=== PATIENT | female | born 1990 | race Caucasian/White ===

== ENCOUNTER 2020-04-22 16:04 | Emergency (ER) | payer OTHER ==
[2020-04-22] MEDS ORDERED: Sodium Chloride 0.9% 1000 ML 1,000 ML IV SCH (16:45)
[2020-04-22 17:03] LABS: Absolute Neutrophil Ct (ANC) 3.23 (1.4-6.9); BASOPHIL % 0.5 % (0.0-0.4); Basophil (Absolute #) 0.03 (0-0.4); Eosinophil % 2.3 % (0.00-5.0); Eosinophil (Absolute #) 0.14 (0-0.5); Hematocrit 42.3 % (35-47); Lymphocytes % 36.1 % (24.0-44.0); Mean Cell Volume 90.8 fl (78-100); Mean Corpuscular Hgb Concent. 33.1 g/dl (32-36); Mean Platelet Volume 10.3 fl (7.5-11.0); Monocyte (Absolute #) 0.49 (0.0-1.3); Neutrophil % 53.1 % (36.0-66.0); Platelet Count 265 K/mm3 (150-450); Red Blood Count 4.66 M/mm3 (4.1-5.4); Red Cell Distribution Width 12.9 % (11.5-14.0); White Blood Count 6.1 K/mm3 (4.0-10.5)
[2020-04-22 17:10] LABS: Appearance CLEAR (CLEAR); Bilirubin NEGATIVE (NEGATIVE); Blood MODERATE Ery/ul (0-5); Epithelial Cells RARE /HPF (FEW); Glucose NEGATIVE (NEGATIVE); Ketones NEGATIVE (NEGATIVE); Leukocyte Esterase NEGATIVE (NEGATIVE); Nitrite NEGATIVE (NEGATIVE); Protein,Urine Dip NEGATIVE (Negative); Specific Gravity 1.006 (1.005-1.025); Urobilinogen NEGATIVE mg/dL (0-1)
[2020-04-22 18:01] LABS: ABO TYPING A; Antibody Screen NEGATIVE (NEGATIVE); RH TYPING POSITIVE
--- NOTE | 2020-04-22 18:08 | ERPHSYRPT ---
- History of Present Illness Time Seen by Provider: 04/22/20 16:15 Source: patient Exam Limitations: no limitations Patient Subjective Stated Complaint: vag bleeding and Triage Nursing Assessment: pt to ED c/o vag bleeding/cramping x 1 month. reports that her IUD displaced a month ago and was removed. pt took plan B pill and was started on oral contraceptive at that time. bleeding/cramping never ended after IUD removal. pt states she felt dizzy and breasts were tender today so she took a test. it was +, pt took 3 more tests and all 4 tests showed +. Dr. Conway told pt to come to ED for r/o ectopic . pain 1/10 cramping in lower bilat abd. Physician History: Patient is a 29-year-old female G6, P3 M 2who presents to our ED as a referral from her [facility] physician for evaluation of possible ectopic. Patient states she has been experiencing vaginal bleeding and pelvic cramping. Patient states 1 month ago her IUD displaced. Patient was concerned with and took a Plan B pill. Patient was started on oral contraceptive pills. For the past several days patient has been feeling dizzy. She states her breasts are tender. Patient had 4+ test at home. In light of these symptoms patient was sent to our ED to rule out ectopic. No trauma. No fevers. No nausea no vomiting. No diarrhea. Symptoms are mild to moderate in intensity. No specific worsening improving factors. Patient is otherwise healthy. She voices no other complaints at this time. Timing/Duration: day(s) Severity: moderate Modifying Factors: Improves With: nothing Associated Symptoms: No denies symptoms, No nausea, No vomiting, No abdominal pain, No shortness of breath, No diaphoresis, No chest pain, No fever, No headaches, No loss of appetite, No malaise, No syncope, No weakness Allergies/Adverse Reactions: No Known Drug Allergies Allergy (Unverified 04/22/20 16:45) Hx Tetanus, Diphtheria Vaccination/Date Given: Yes Hx Influenza Vaccination/Date Given: Yes Hx Pneumococcal Vaccination/Date Given: No Immunizations Up to Date: Yes Travel Risk - International Travel Have you traveled outside of the country in past 3 weeks: No - Coronavirus Screening Are you exhibiting any of the following symptoms?: No Close contact with a COVID-19 positive Pt in past 14-21 Days: No - Review of Systems Constitutional: No Symptoms, No Fever, No Chills Eyes: No Symptoms Ears, Nose, & Throat: No Symptoms Respiratory: No Symptoms, No Cough, No Dyspnea Cardiac: No Symptoms, No Chest Pain, No Edema, No Syncope Abdominal/Gastrointestinal: No Symptoms, No Abdominal Pain, No Nausea, No Vomiting, No Diarrhea Genitourinary Symptoms: No Symptoms, No Dysuria Musculoskeletal: No Symptoms, No Back Pain, No Neck Pain Skin: No Symptoms, No Rash Neurological: No Symptoms, No Dizziness, No Focal Weakness, No Sensory Changes Psychological: No Symptoms Endocrine: No Symptoms Hematologic/Lymphatic: No Symptoms Immunological/Allergic: No Symptoms All Other Systems: Reviewed and Negative - Past Medical History Pertinent Past Medical History: Yes Respiratory History: Asthma - Past Surgical History Past Surgical History: Yes Gastrointestinal: Appendectomy, Cholecystectomy Female Surgical History: Dilation & Curettage - Social History Smoking Status: Never smoker Exposure to second hand smoke: No Drug Use: none Patient Lives Alone: No - Female History Hx Now: Yes (4 + tests at home) - Nursing Vital Signs Nursing Vital Signs: Initial Vital Signs Temperature 98.6 F 04/22/20 16:09 Pulse Rate 92 H 04/22/20 16:09 Respiratory Rate 17 04/22/20 16:09 Blood Pressure 143/99 04/22/20 16:09 O2 Sat by Pulse Oximetry 98 04/22/20 16:09 Pain Scale Pain Intensity 1 - Physical Exam General Appearance: no apparent distress, alert Eye Exam: PERRL/EOMI, eyes nml inspection Ears, Nose, Throat Exam: normal ENT inspection, TMs normal, pharynx normal, moist mucous membranes Neck Exam: normal inspection, non-tender, supple, full range of motion Respiratory Exam: normal breath sounds, lungs clear, No respiratory distress Cardiovascular Exam: regular rate/rhythm, normal heart sounds, normal peripheral pulses Gastrointestinal/Abdomen Exam: soft, normal bowel sounds, No tenderness, No mass Back Exam: normal inspection, normal range of motion, No CVA tenderness, No vertebral tenderness Extremity Exam: normal inspection, normal range of motion, pelvis stable Neurologic Exam: alert, oriented x 3, cooperative, normal mood/affect, nml cerebellar function, nml station & gait, sensation nml, No motor deficits Skin Exam: normal color, warm, dry, No rash Lymphatic Exam: No adenopathy SpO2 Interpretation: normal SpO2: 97 O2 Delivery: Room Air - Course Nursing assessment & vital signs reviewed: Yes - Radiology Ultrasound Exam OB Ultrasound: tele radiology report (No intrauterine gestational sac pole or heart tones. Indeterminate 1.7 x 1.2 x 1.7 cm echogenic solid mass adjacent to right ovary without color flow. Cannot rule out ectopic. Remaining uterus and both ovaries unremarkable.) Ordered Tests: Active Orders 24 hr Category Date Time Status IV Insertion STAT Care 04/22/20 16:40 Active OB <14 WKS 1ST GESTATION [US] Stat Exams 04/22/20 16:41 Taken CBC W DIFF Stat Lab 04/22/20 16:55 Completed CMP Stat Lab 04/22/20 18:27 Ordered HCG, Quantitative (Inhouse) Stat Lab 04/22/20 16:55 Completed UA W/RFX UR CULTURE Stat Lab 04/22/20 16:44 Completed Wet Prep Stat Lab 04/22/20 16:41 Ordered Transfer Order Routine Transfer 04/22/20 Ordered Medication Summary Generic Name Dose Route Start Last Admin Trade Name Freq PRN Reason Stop Dose Admin Sodium Chloride 1,000 mls @ 100 mls/hr 04/22/20 16:45 04/22/20 17:01 Sodium Chloride 0.9% 1000 Ml IV 05/22/20 16:44 Not Given .Q10H [facility] Lab/Rad Data: Laboratory Result Diagrams 04/22/20 16:55 04/22/20 16:55 Laboratory Results 04/22/20 04/22/20 04/22/20 Range/Units 16:55 16:55 16:55 WBC (4.0-10.5) K/mm3 RBC (4.1-5.4) M/mm3 Hgb (12.0-16.0) gm/dl Hct (35-47) % MCV (78-100) fl MCH (26-32) pg MCHC (32-36) g/dl RDW (11.5-14.0) % Plt Count (150-450) K/mm3 MPV (7.5-11.0) fl Gran % (36.0-66.0) % Eos # (Auto) (0-0.5) Absolute Lymphs (auto) (1.0-4.6) Absolute Monos (auto) (0.0-1.3) Lymphocytes % (24.0-44.0) % Monocytes % (0.0-12.0) % Eosinophils % (0.00-5.0) % Basophils % (0.0-0.4) % Absolute Granulocytes (1.4-6.9) Basophils # (0-0.4) Sodium 137 (137-145) mmol/L Potassium 4.2 (3.5-5.1) mmol/L Chloride 104 (98-107) mmol/L Carbon Dioxide 25 (22-30) mmol/L Anion Gap 12.3 (5-15) MEQ/L BUN 11 (7-17) mg/dL Creatinine 0.67 (0.52-1.04) mg/dL Estimated GFR > 60.0 ML/MIN Glucose 85 (74-106) mg/dL Calcium 10.1 (8.4-10.2) mg/dL Total Bilirubin 0.90 (0.2-1.3) mg/dL AST 21 (14-36) U/L ALT 14 (0-35) U/L Alkaline Phosphatase 44 (38-126) U/L Serum Total Protein 6.9 (6.3-8.2) g/dL Albumin 4.5 (3.5-5.0) g/dL Beta HCG, Quant 116.53 mIU/ml Urine Color (YELLOW) Urine Appearance (CLEAR) Urine pH (5-6) Ur Specific [place] (1.005-1.025) Urine Protein (Negative) Urine Ketones (NEGATIVE) Urine Blood (0-5) Dave/ul Urine Nitrite (NEGATIVE) Urine Bilirubin (NEGATIVE) Urine Urobilinogen (0-1) mg/dL Ur Leukocyte Esterase (NEGATIVE) Urine WBC (Auto) (0-5) /HPF Urine RBC (Auto) (0-2) /HPF U Epithel Cells (Auto) (FEW) /HPF Urine Bacteria (Auto) (NEGATIVE) /HPF Urine Culture Reflexed (NO) Urine Glucose (NEGATIVE) mg/dL ABO Group A Rh Factor POSITIVE Antibody Screen NEGATIVE (NEGATIVE) 04/22/20 04/22/20 Range/Units 16:55 16:44 WBC 6.1 (4.0-10.5) K/mm3 RBC 4.66 (4.1-5.4) M/mm3 Hgb 14.0 (12.0-16.0) gm/dl Hct 42.3 (35-47) % MCV 90.8 (78-100) fl MCH 30.0 (26-32) pg MCHC 33.1 (32-36) g/dl RDW 12.9 (11.5-14.0) % Plt Count 265 (150-450) K/mm3 MPV 10.3 (7.5-11.0) fl Gran % 53.1 (36.0-66.0) % Eos # (Auto) 0.14 (0-0.5) Absolute Lymphs (auto) 2.20 (1.0-4.6) Absolute Monos (auto) 0.49 (0.0-1.3) Lymphocytes % 36.1 (24.0-44.0) % Monocytes % 8.0 (0.0-12.0) % Eosinophils % 2.3 (0.00-5.0) % Basophils % 0.5 (0.0-0.4) % Absolute Granulocytes 3.23 (1.4-6.9) Basophils # 0.03 (0-0.4) Sodium (137-145) mmol/L Potassium (3.5-5.1) mmol/L Chloride (98-107) mmol/L Carbon Dioxide (22-30) mmol/L Anion Gap (5-15) MEQ/L BUN (7-17) mg/dL Creatinine (0.52-1.04) mg/dL Estimated GFR ML/MIN Glucose (74-106) mg/dL Calcium (8.4-10.2) mg/dL Total Bilirubin (0.2-1.3) mg/dL AST (14-36) U/L ALT (0-35) U/L Alkaline Phosphatase (38-126) U/L Serum Total Protein (6.3-8.2) g/dL Albumin (3.5-5.0) g/dL Beta HCG, Quant mIU/ml Urine Color STRAW (YELLOW) Urine Appearance CLEAR (CLEAR) Urine pH 7.0 (5-6) Ur Specific [place] 1.006 (1.005-1.025) Urine Protein NEGATIVE (Negative) Urine Ketones NEGATIVE (NEGATIVE) Urine Blood MODERATE (0-5) Dave/ul Urine Nitrite NEGATIVE (NEGATIVE) Urine Bilirubin NEGATIVE (NEGATIVE) Urine Urobilinogen NEGATIVE (0-1) mg/dL Ur Leukocyte Esterase NEGATIVE (NEGATIVE) Urine WBC (Auto) NONE (0-5) /HPF Urine RBC (Auto) NONE (0-2) /HPF U Epithel Cells (Auto) RARE (FEW) /HPF Urine Bacteria (Auto) NONE (NEGATIVE) /HPF Urine Culture Reflexed NO (NO) Urine Glucose NEGATIVE (NEGATIVE) mg/dL ABO Group Rh Factor Antibody Screen (NEGATIVE) - Progress Progress: improved Progress Note: 04/22/20 18:23 Patient reassessed. Patient declined pain medication. Patient initially declined IV fluids. However ultrasound reveals a right adnexal mass with a positive beta quant. Beta quant is 116. Case discussed with Dr. Conway who requested to call in the surgical team for an emergent surgery. Especially her she is respiratory patient's last meal was approximately 6 hours ago. Will maintain n.p.o. status. IV fluids will be infused. Plan of care discussed with patient. She voices no other complaints concerns at this time. Discussed with Dr.: Travon (Per Dr. Yoo patient will be taken to the OR emergently for suspected ectopic.) Will see patient in: hospital (observation) Counseled pt/family regarding: lab results, diagnosis, rad results - Departure Departure Disposition: Observation Clinical Impression: Ectopic , Vaginal bleeding Condition: Stable Critical Care Time: Yes Critical Care Time(excluding separately billable procedures): Critical 75-104 mins Referrals: FELISA HUGGINS MD [Primary Care Provider] -
[2020-04-22 18:36] LABS: CHLAMYDIA DNA NOT DETECTED (NEGATIVE); GC DNA Probe NOT DETECTED (NEGATIVE)
[2020-04-22 18:43] LABS: ALBUMIN 4.5 g/dL (3.5-5.0); ALKALINE PHOSPHATASE 44 U/L (38-126); ANION GAP 12.3 MEQ/L (5-15); BLOOD UREA NITROGEN 11 mg/dL (7-17); CHLORIDE 104 mmol/L (98-107); Calcium 10.1 mg/dL (8.4-10.2); Carbon Dioxide 25 mmol/L (22-30); Creatinine 1 0.67 mg/dL (0.52-1.04); Glucose 85 mg/dL (74-106); Potassium 4.2 mmol/L (3.5-5.1); SGOT/AST 21 U/L (14-36); SGPT/ALT 14 U/L (0-35); SODIUM 137 mmol/L (137-145); Total Protein 6.9 g/dL (6.3-8.2)
[2020-04-22] MEDS ORDERED: Lactated Ringers 1,000 ML IV ONE ×2 (19:02→20:47)
[2020-04-22] MEDS ORDERED: Pepcid 20 MG VIAL IV ONE ×2 (19:03→19:04)
[2020-04-22 19:07] VITALS: O2SAT 99
[2020-04-22] MEDS ORDERED: DIPRIVAN 200 MG/20 ML IV ONE (19:09)
[2020-04-22] MEDS ORDERED: Zemuron 100 MG/10 ML ONE (19:09)
[2020-04-22] MEDS ORDERED: BRIDION 200MG/2ML IV ONE (19:09)
[2020-04-22] MEDS ORDERED: Decadron 4 MG INJ ONE (19:09)
[2020-04-22] MEDS ORDERED: Quelicin Fliptop 200 MG/10 ML ONE (19:09)
[2020-04-22] MEDS ORDERED: Zofran 4 MG/2 ML VIAL ONE ×2 (19:09→20:42)
[2020-04-22] MEDS ORDERED: TORAdol 30 mg Injection ONE (19:09)
[2020-04-22] MEDS ORDERED: Xylocaine-Mpf 2% 5 Ml Vial ONE (19:09)
[2020-04-22 19:10] VITALS: BP 122/76; PULSE 78
[2020-04-22] MEDS ORDERED: Versed 2 MG/2 ML Injection ONE (19:10)
[2020-04-22] MEDS ORDERED: SUBLIMAZE 100 MCG/2 ML ONE ×2 (19:10→20:14)
[2020-04-22] MEDS ORDERED: Lactated Ringers 1,000 ML IV SCH (19:30)
[2020-04-22] MEDS ORDERED: PHENYLEPHRINE HCL ONE (19:57)
[2020-04-22] MEDS ORDERED: DILAUDID 2 MG INJECTION ONE (20:36)
[2020-04-22] MEDS ORDERED: DEMEROL 50 MG ONE (20:47)
[2020-04-22 22:38] LABS: Appearance CLEAR (CLEAR); Bilirubin NEGATIVE (NEGATIVE); Blood NEGATIVE Ery/ul (0-5); Glucose NEGATIVE (NEGATIVE); Ketones TRACE (NEGATIVE); Leukocyte Esterase NEGATIVE (NEGATIVE); Nitrite NEGATIVE (NEGATIVE); Protein,Urine Dip NEGATIVE (Negative); Specific Gravity 1.008 (1.005-1.025); Urobilinogen NEGATIVE mg/dL (0-1); WBC 0-2 /HPF (0-5)
--- NOTE | 2020-04-23 08:37 | OP ---
SURGERY DATE/TIME: 04/22/20201914 PREOPERATIVE DIAGNOSIS: Right-sided ectopic with vaginal bleeding. 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 PROCEDURES: 1) Dilation and curettage. 2) Diagnostic laparoscopy with linear salpingostomy. 2) Removal of right ampullary ectopic . SURGEON: John Conway D.O. CRUDE OIL DRIVER: Denise Garcia, registered nurse surgical services. ANESTHESIA: General. ESTIMATED BLOOD LOSS: Minimal. COMPLICATIONS: None. INDICATIONS: The risks, benefits, indications and alternatives of the procedure were reviewed with the patient prior to procedure. The patient understood the risk of infection, bleeding, bowel injury, bladder injury, ureteral injury, uterine perforation, possible future ectopic that could be associated with this and desires to have this procedure as a possible need to alleviate her current medical condition. DESCRIPTION OF PROCEDURE AND FINDINGS: At this point the patient is taken to the operating room, given general sedation, placed in dorsal lithotomy position, prepped and draped in the usual sterile fashion. A weighted speculum is then placed in the patient's vagina and the anterior lip of the cervix is grasped with a single tooth tenaculum. Endocervical dilators were advanced through the endocervical canal as a means to dilate the cervix and at this point a curette was then placed into the fundus of the uterus and curettage performed in all quadrants of the uterus retrieving a mild amount of endometrial tissue. From this point hemostasis was obtained. From this point uterine manipulator was then placed into the endocervical canal as a means to manipulate the uterus. All instruments were then removed from the patient's vaginal region. Attention was then turned to the abdomen where a 5 mm skin incision was made approximately 1 cm above the umbilicus where a 5 mm trocar and sleeve were advanced under direct visualization where pneumoperitoneum was obtained with 4 liters of CO2 gas. From this point an additional incision was made on the left middle quadrant region where a 5 mm incision is made and a 5 mm trocar and sleeve were advanced under direct visualization as well and a third incision was made 2 cm above the symphysis pubis where a 5 mm trocar and sleeve were advanced under direct visualization. From this point survey of the patient's pelvis and abdomen revealed her to have approximately 100 cc of pneumoperitoneum with normal appearing left adnexa. However, her right adnexa on the ampullary region appeared to have approximately a 2 x 1 cm ampullary mass which is consistent with the ultrasound finding of an ectopic . From this point, a J-hook bipolar instrument was used and a linear incision was made along the ampullary region of the tube and approximately 2 cm linear incision was made and graspers were used on either side where irrigation was placed into the tube. From this point, the ectopic was then extruded and was removed via the laparoscopic grasper and was removed in its entirety without complication. There was minimal bleeding that was noted and the bipolar medical staff physician was then used to coagulate two small regions of bleeding sites on the mucosal region where hemostasis was obtained. No other abnormalities were noted along the fallopian tube. Again, hemostasis was obtained. The remainder of the tube appeared to be within normal limits as well as the ovary. There were no adhesions located within the pelvic region. Bilateral fimbria appeared to be within normal limits and a survey of the patient's abdominal region appeared to be within normal limits as well. From this point, irrigation was taken place. Again, there was no bleeding that was noted in the pelvic region. From this point all of the instruments were removed from the patient's abdominal region and the incisions were closed with 4-0 Monocryl suture with subsequent Dermabond. The patient was then taken out of dorsal lithotomy position, was taken out of anesthesia and was then taken to the recovery room in stable condition. All instruments and laps were accounted for x2.
--- NOTE | 2020-04-23 08:48 | XRAY ---
Indication: Ectopic . Two-dimensional transvaginal pelvic sonogram performed. Comparison: None Uterus anteverted measuring 8.3 x 5.5 x 3.5 cm. Myometrium homogeneous. No intrauterine gestational sac, pole, or heart tones. Endometrial stripe measures 5.3 mm. No endometrial cavity mass or fluid collection. Right ovary measures 2.1 x 2.7 x 1.9 cm and the left measures 2.1 x 1.5 x 1.7 cm with normal follicular cysts and color perfusion bilaterally. There is a 1.7 x 1.2 x 1.7 cm echogenic solid mass immediately adjacent to the right ovary without gestational sac, pole/heart tones, or abnormal color flow. No free fluid. Impression: 1. Negative intrauterine . 2. Indeterminant echogenic mass adjacent to the right ovary as detailed. Ectopic is not completely excluded in the right clinical setting. Additional partial differential includes tubo-ovarian abscess, endometrioma, and benign/malignant tumors. Comment: Preliminary report was given to the ordering clinician following exam.
== END 2020-04-22 21:50 | disposition home or self-care (01) ==
LOC: ED 16:04
DX: O00.90 Unspecified ectopic pregnancy without intrauterine pregnancy (principal); N93.9 Abnormal uterine and vaginal bleeding, unspecified; K66.1 Hemoperitoneum
CPT/HCPCS: 36415; 58120; 59150; 59151; 76801; 80053; 81001; 84702; 85025; 86850; 86900; 86901; 87086; 87491; 87591; 88304; 88305; 96374; 99140; 99284; 99291; 99292; J0330; J1100; J1170; J1885; J2175; J2250; J2370; J2405; J2704; J3010

== ENCOUNTER 2020-04-25 17:10 | Emergency (ER) | payer OTHER ==
[2020-04-25] MEDS ORDERED: Sodium Chloride 0.9% 1000 ML 1,000 ML IV STA (17:12)
[2020-04-25] MEDS ORDERED: Sodium Chloride 0.9% 1000 ML 1,000 ML ONE (17:34)
[2020-04-25 17:44] VITALS: BP 132/73; O2SAT 99
[2020-04-25 17:45] LABS: Absolute Neutrophil Ct (ANC) 5.22 (1.4-6.9); BASOPHIL % 0.3 % (0.0-0.4); Basophil (Absolute #) 0.03 (0-0.4); Eosinophil % 6.4 % (0.00-5.0); Eosinophil (Absolute #) 0.56 (0-0.5); Hematocrit 37.8 % (35-47); Hemoglobin 12.5 gm/dl (12.0-16.0); Lymphocyte (Absolute #) 2.36 (1.0-4.6); Lymphocytes % 26.9 % (24.0-44.0); Mean Cell Volume 91.1 fl (78-100); Mean Corpuscular Hemoglobin 30.1 pg (26-32); Mean Corpuscular Hgb Concent. 33.1 g/dl (32-36); Mean Platelet Volume 10.3 fl (7.5-11.0); Monocytes % 6.8 % (0.0-12.0); Neutrophil % 59.6 % (36.0-66.0); Platelet Count 256 K/mm3 (150-450); Red Blood Count 4.15 M/mm3 (4.1-5.4); Red Cell Distribution Width 12.6 % (11.5-14.0); White Blood Count 8.8 K/mm3 (4.0-10.5)
[2020-04-25 18:12] LABS: ALBUMIN 4.3 g/dL (3.5-5.0); ALKALINE PHOSPHATASE 45 U/L (38-126); AMYLASE 81 U/L (30-110); ANION GAP 12.5 MEQ/L (5-15); BLOOD UREA NITROGEN 12 mg/dL (7-17); CHLORIDE 105 mmol/L (98-107); Calcium 9.1 mg/dL (8.4-10.2); Carbon Dioxide 25 mmol/L (22-30); Creatinine 1 0.63 mg/dL (0.52-1.04); Glucose 113 mg/dL (74-106); HCG, Quantitative (Inhouse) 72.56 mIU/ml; LIPASE 76 U/L (23-300); SGOT/AST 21 U/L (14-36); SGPT/ALT 13 U/L (0-35); SODIUM 138 mmol/L (137-145); Total Protein 7.2 g/dL (6.3-8.2)
--- NOTE | 2020-04-25 18:24 | ERPHSYRPT ---
- History of Present Illness Time Seen by Provider: 04/25/20 18:20 Historian: patient Exam Limitations: no limitations Patient Subjective Stated Complaint: Abdominal pain Triage Nursing Assessment: Patient ambulated back to ED and transferred self to bed. Patient A+O X3. Patient's skin pink, warm and dry. Patient complains of right lower pelvic pain constant, sharp pain 7/10 with intermittent abdominal cramping. Patient had ectopic of and went to emergency surgery. Patient called Dr. Conway and was told to come to ED. Patient states she is having bloody discharge with clots and sometimes will bleed a lot. Patient's abdomen soft and distended. Patient states she feels bloated. Physician History: Patient complains of right lower pelvic pain constant, sharp pain 7/10 with intermittent abdominal cramping. Patient had ectopic of and went to emergency surgery. Patient called Dr. Conway and was told to come to ED. Patient states she is having bloody discharge with clots and sometimes will bleed a lot. Patient's abdomen soft and distended. Patient states she feels bloated. Timing/Duration: today Activities at Onset: none Quality: cramping Abdominal Pain Onset Location: suprapubic Pain Radiation: no radiation Severity of Pain-Max: mild Severity of Pain-Current: mild Modifying Factors: Improves With: nothing Associated Symptoms: No fever/chills, No loss of appetite, No nausea, No shortness of breath, No vomiting Previous symptoms: no prior history Allergies/Adverse Reactions: No Known Drug Allergies Allergy (Verified 04/25/20 17:36) Home Medications: No Reportable Medications [No Reported Medications] 04/25/20 [History] Hx Tetanus, Diphtheria Vaccination/Date Given: Yes Hx Influenza Vaccination/Date Given: Yes Hx Pneumococcal Vaccination/Date Given: No Immunizations Up to Date: Yes Travel Risk - International Travel Have you traveled outside of the country in past 3 weeks: No - Coronavirus Screening Are you exhibiting any of the following symptoms?: No Close contact with a COVID-19 positive Pt in past 14-21 Days: No - Review of Systems Constitutional: No Fever, No Chills Eyes: No Symptoms Ears, Nose, & Throat: No Symptoms Respiratory: No Cough, No Dyspnea Cardiac: No Chest Pain, No Edema, No Syncope Abdominal/Gastrointestinal: Abdominal Pain, No Nausea, No Vomiting, No Diarrhea Genitourinary Symptoms: Vaginal Bleeding, No Dysuria Musculoskeletal: No Back Pain, No Neck Pain Skin: No Rash Neurological: No Dizziness, No Focal Weakness, No Sensory Changes Psychological: No Symptoms Endocrine: No Symptoms All Other Systems: Reviewed and Negative - Past Medical History Pertinent Past Medical History: Yes Neurological History: No Pertinent History ENT History: No Pertinent History Cardiac History: No Pertinent History Respiratory History: Asthma Endocrine Medical History: No Pertinent History Musculoskeletal History: No Pertinent History GI Medical History: No Pertinent History History: No Pertinent History Psycho-Social History: Depression Female Reproductive Disorders: No Pertinent History - Past Surgical History Past Surgical History: Yes Neuro Surgical History: No Pertinent History Cardiac: No Pertinent History Respiratory: No Pertinent History Gastrointestinal: Appendectomy, Cholecystectomy Genitourinary: No Pertinent History Musculoskeletal: No Pertinent History Female Surgical History: Dilation & Curettage - Social History Smoking Status: Never smoker Exposure to second hand smoke: No Drug Use: none Patient Lives Alone: No - Female History Hx Last Menstrual Period: unknown Hx Now: No - Nursing Vital Signs Nursing Vital Signs: Initial Vital Signs Temperature 98.3 F 04/25/20 17:36 Pulse Rate 104 H 04/25/20 17:36 Respiratory Rate 18 04/25/20 17:36 Blood Pressure 132/73 04/25/20 17:36 O2 Sat by Pulse Oximetry 99 04/25/20 17:36 Pain Scale Pain Intensity 7 - Physical Exam General Appearance: no apparent distress, alert Eye Exam: PERRL/EOMI, eyes nml inspection Ears, Nose, Throat Exam: normal ENT inspection, pharynx normal, moist mucous membranes Neck Exam: normal inspection, non-tender, supple, full range of motion Respiratory Exam: normal breath sounds, lungs clear, No respiratory distress Cardiovascular Exam: regular rate/rhythm, normal heart sounds Gastrointestinal/Abdomen Exam: soft, tenderness, No mass Back Exam: normal inspection, normal range of motion, No CVA tenderness, No vertebral tenderness Extremity Exam: normal inspection, normal range of motion, pelvis stable Neurologic Exam: alert, oriented x 3, cooperative, normal mood/affect, nml cerebellar function, sensation nml, No motor deficits Skin Exam: normal color, warm, dry SpO2: 99 - Course Nursing assessment & vital signs reviewed: Yes - Radiology Ultrasound Exam Pelvis Ultrasound: discussed w/radiologist (? some tissues remain at surgical site according to [place] missile tracking technician.) Ordered Tests: Active Orders 24 hr Category Date Time Status IV Insertion STAT Care 04/25/20 18:48 Active PELVIC [US] Stat Exams 04/25/20 17:12 Taken AMYLASE Stat Lab 04/25/20 17:42 Completed CBC W DIFF Stat Lab 04/25/20 17:42 Completed CMP Stat Lab 04/25/20 17:42 Completed HCG, Quantitative (Inhouse) Stat Lab 04/25/20 17:42 Completed LIPASE Stat Lab 04/25/20 17:42 Completed Medication Summary Discontinued Medications Generic Name Dose Route Start Last Admin Trade Name Freq PRN Reason Stop Dose Admin Sodium Chloride 1,000 mls @ 999 mls/hr 04/25/20 17:12 04/25/20 18:45 Sodium Chloride 0.9% 1000 Ml IV 04/25/20 18:12 Infused .Q1H1M STA Infusion Sodium Chloride Confirm 04/25/20 17:34 Sodium Chloride 0.9% 1000 Ml Administered 04/25/20 17:35 Dose 1,000 mls @ ud .ROUTE .STK-MED ONE Methotrexate Sodium 50 mg 04/25/20 18:50 Methotrexate 50 Mg/2 Ml Vial IM 04/25/20 18:51 STAT ONE Lab/Rad Data: Laboratory Result Diagrams 04/25/20 17:42 04/25/20 17:42 Laboratory Results 04/25/20 04/25/20 Range/Units 17:42 17:42 WBC 8.8 (4.0-10.5) K/mm3 RBC 4.15 (4.1-5.4) M/mm3 Hgb 12.5 (12.0-16.0) gm/dl Hct 37.8 (35-47) % MCV 91.1 (78-100) fl MCH 30.1 (26-32) pg MCHC 33.1 (32-36) g/dl RDW 12.6 (11.5-14.0) % Plt Count 256 (150-450) K/mm3 MPV 10.3 (7.5-11.0) fl Gran % 59.6 (36.0-66.0) % Eos # (Auto) 0.56 H (0-0.5) Absolute Lymphs (auto) 2.36 (1.0-4.6) Absolute Monos (auto) 0.60 (0.0-1.3) Lymphocytes % 26.9 (24.0-44.0) % Monocytes % 6.8 (0.0-12.0) % Eosinophils % 6.4 H (0.00-5.0) % Basophils % 0.3 (0.0-0.4) % Absolute Granulocytes 5.22 (1.4-6.9) Basophils # 0.03 (0-0.4) Sodium 138 (137-145) mmol/L Potassium 4.0 (3.5-5.1) mmol/L Chloride 105 (98-107) mmol/L Carbon Dioxide 25 (22-30) mmol/L Anion Gap 12.5 (5-15) MEQ/L BUN 12 (7-17) mg/dL Creatinine 0.63 (0.52-1.04) mg/dL Estimated GFR > 60.0 ML/MIN Glucose 113 H (74-106) mg/dL Calcium 9.1 (8.4-10.2) mg/dL Total Bilirubin 0.60 (0.2-1.3) mg/dL AST 21 (14-36) U/L ALT 13 (0-35) U/L Alkaline Phosphatase 45 (38-126) U/L Serum Total Protein 7.2 (6.3-8.2) g/dL Albumin 4.3 (3.5-5.0) g/dL Amylase 81 (30-110) U/L Lipase 76 (23-300) U/L Beta HCG, Quant 72.56 mIU/ml - Progress Progress: improved, pain not gone completely Progress Note: 04/25/20 19:04 Dr Conway advised methotraxate 50 mg IM deep gluteal area Discussed with : Other (Dr Conway) Counseled pt/family regarding: lab results, diagnosis, need for follow-up, rad results - Departure Departure Disposition: Home Clinical Impression: Vaginal bleeding Condition: Stable Critical Care Time: No Referrals: FELISA HUGGINS MD [Primary Care Provider] - Additional Instructions: follow up with Dr Conway in 2 days. If symptoms get worse call Dr Conway or come to ER.
[2020-04-25] MEDS ORDERED: METHOTREXATE 50 MG/2 ML VIAL IM ONE (18:50)
[2020-04-25] MEDS ORDERED: TORAdol 30 mg Injection IV ONE (19:06)
[2020-04-25] MEDS ORDERED: TORAdol 30 mg Injection ONE (19:14)
[2020-04-25 20:28] VITALS: PULSE 98
--- NOTE | 2020-04-26 08:51 | XRAY ---
Indication: Ectopic . Right pelvic pain. Two-dimensional transvaginal pelvic sonogram performed. Comparison: April 22, 2020. Uterus again anteverted measuring 8.4 x 4.3 x 5.2 cm. Myometrium remains homogeneous. Endometrial cavity demonstrates new tiny fluid near the fundus measuring 0.9 x 2.3 x 0.3 cm. No endometrial cavity mass. Right ovary measures 2.8 x 1.5 x 1.8 cm and the left measures 2.2 x 1.7 x 1.2 cm with normal follicular cysts and color perfusion.. Previous echogenic mass adjacent to the right ovary reidentified measuring 2.2 x 1.8 x 2.3 cm with increasing color Doppler flow. This previously measured 1.7 x 1.2 x 1.7 cm. New tiny cul-de-sac free fluid. Impression: 1. Minimally enlarging indeterminant echogenic mass adjacent to the right ovary as detailed. Differential unchanged. 2. New tiny endometrial cavity fluid and tiny cul-de-sac fluid. 3. Remaining transvaginal pelvic sonogram is negative. Comment: Preliminary report was given.
== END 2020-04-25 20:27 | disposition home or self-care (01) ==
LOC: ED 17:10
DX: N93.9 Abnormal uterine and vaginal bleeding, unspecified (principal)
CPT/HCPCS: 36000; 36415; 76856; 80053; 82150; 83690; 84702; 85025; 96360; 96372; 96374; 99284; J1885; J9260

== ENCOUNTER 2021-06-13 11:46 | Emergency (ER) | payer OTHER ==
[2021-06-13 11:55] VITALS: BP 120/79; PULSE 73; O2SAT 100
--- NOTE | 2021-06-13 12:12 | ERPHSYRPT ---
- History of Present Illness Source: patient Exam Limitations: no limitations Patient Subjective Stated Complaint: pt here for pain to upper right jaw , she has a tooth with the cavity is out and has apt 07/20 have pulled pt is 10 weeks now , Triage Nursing Assessment: pt laert, walked in, resp easy, skin w/d/p. has swelling to gums, Physician History: 30 yo wf w dental pain x 2 days. Pt had a filling fall out 2 wks ago and has s een her dentist who referred her to an oral surgeon who is going to extract her R superior 2nd molar and R inferior 1st premolar. Pt has had increasing pain and gingival edema. No trismus. Pt is 10wks . Timing/Duration: this afternoon, days (2 days) ENT Location: dental Prearrival Treatment: over the counter meds (Tylenol) Modifying Factors: Worsens With: activity, nothing, albuterol inhaler, albuterol nebulizer, coughing, deep breath, exertion, lying down, oxygen, rest Associated Symptoms: denies symptoms, jaw pain, tooth pain, No ear pain (R), No ear pain (L), No cough, No fever, No chills, No change in hearing, No dizziness, No drooling, No ear drainage, No facial pain/swelling, No headache, No hearing loss, No malaise, No motion sickness, No nasal congestion/drainage, No epistaxis, No nasal foreign body, No neck pain, No poor fluid intake, No poor solids intake, No ringing of ears, No swollen glands, No sinus infection, No sore throat, No difficulty swallowing, No voice change Allergies/Adverse Reactions: No Known Drug Allergies Allergy (Verified 06/13/21 11:55) Home Medications: Bupropion HCl [Wellbutrin Sr] 1 ea DAILY 06/13/21 [History] Ondansetron ODT 4 MG [Zofran Odt 4 mg] 1 ea DAILY 06/13/21 [History] Vits W-Ca,Fe,FA(<1Mg) [] 1 ea DAILY 06/13/21 [History] Hx Tetanus, Diphtheria Vaccination/Date Given: Yes Hx Influenza Vaccination/Date Given: Yes Hx Pneumococcal Vaccination/Date Given: No Immunizations Up to Date: Yes Travel Risk - International Travel Have you traveled outside of the country in past 3 weeks: No - Coronavirus Screening Are you exhibiting any of the following symptoms?: No Close contact with a COVID-19 positive Pt in past 14-21 Days: No - Vaccine Status Have you recieved a Covid-19 vaccination: Yes [place]: Pfizer - Vaccination Dates Date of 2cond Vaccination (if applicable): ? - Review of Systems Constitutional: No Symptoms Eyes: No Symptoms Ears, Nose, & Throat: No Symptoms, Mouth Pain Respiratory: No Symptoms Cardiac: No Symptoms Abdominal/Gastrointestinal: No Symptoms Genitourinary Symptoms: No Symptoms Musculoskeletal: No Symptoms Skin: No Symptoms Neurological: No Symptoms Psychological: No Symptoms Endocrine: No Symptoms Hematologic/Lymphatic: No Symptoms Immunological/Allergic: No Symptoms - Past Medical History Pertinent Past Medical History: Yes Neurological History: No Pertinent History ENT History: No Pertinent History Cardiac History: No Pertinent History Respiratory History: Asthma Endocrine Medical History: No Pertinent History Musculoskeletal History: No Pertinent History GI Medical History: No Pertinent History History: No Pertinent History Psycho-Social History: Depression Female Reproductive Disorders: No Pertinent History - Past Surgical History Past Surgical History: Yes Neuro Surgical History: No Pertinent History Cardiac: No Pertinent History Respiratory: No Pertinent History Gastrointestinal: Appendectomy, Cholecystectomy Genitourinary: No Pertinent History Musculoskeletal: No Pertinent History Female Surgical History: Dilation & Curettage - Social History Smoking Status: Never smoker Exposure to second hand smoke: No Drug Use: none Patient Lives Alone: No Significant Family History: no pertinent family hx - Female History Hx Last Menstrual Period: april 04 Hx Now: Yes Expected Date of Delivery: 01/09/22 - Nursing Vital Signs Nursing Vital Signs: Initial Vital Signs Temperature 97.2 F 06/13/21 11:51 Pulse Rate 73 06/13/21 11:51 Respiratory Rate 18 06/13/21 11:51 Blood Pressure 120/79 06/13/21 11:51 O2 Sat by Pulse Oximetry 100 06/13/21 11:51 Pain Scale Pain Intensity 8 WNL - Physical Exam General Appearance: no apparent distress Eye Exam: bilateral eye: normal inspection, PERRL, EOMI Ear Exam: bilateral ear: auricle normal, canal normal, TM normal Nasal Exam: normal inspection Throat Exam: pharynx normal, dental tenderness (R superior 2nd molar w advanced erosion w surrounding edema/R inferior premolar eroded to base), No excessive drooling, No foreign body, No mandibular swelling, No maxillary swelling, No moist mucus membranes, No pharynx swelling, No pharynx tenderness, No tongue swollen, No tonsillar exudate, No tonsillar swelling, No trismus, No uvula swelling, No voice changes Neck Exam: normal inspection, non-tender, supple, full range of motion, trachea midline, No JVD Cardiovascular/Respiratory Exam: normal breath sounds, regular rate/rhythm, heart sounds normal Abdominal Exam: non-tender Neurologic Exam: alert, oriented x 3, cooperative, 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 Pt to follow up with dentist/oral surgeon// Zoraida in AM. 06/13/21 16:58 Discussed with : Travon (and dentist/oral surgeon) Counseled pt/family regarding: diagnosis, need for follow-up - Departure Departure Disposition: Home Clinical Impression: Pain due to dental caries Condition: Stable Critical Care Time: No Referrals: FELISA HUGGINS MD [Primary Care Provider] - Instructions: Tooth Abscess (DC), Tooth Decay, Adult (DC), Dental Pain (DC) Additional Instructions: Follow up with dentist/oral surgeon sandy Prescriptions: Penicillin V Potassium 500 mg PO TID 7 Days #21 tablet
== END 2021-06-13 12:18 | disposition home or self-care (01) ==
LOC: ED 11:46
DX: K02.9 Dental caries, unspecified (principal); K08.89 Other specified disorders of teeth and supporting structures
CPT/HCPCS: 99283

== ENCOUNTER 2022-01-01 08:50 | Inpatient (IN) | payer OTHER ==
[2022-01-01] MEDS: CYTOTEC PO SCH ×2 (20:31→22:28)
[2022-01-01 20:44] LABS: Basophil (Absolute #) 0.02 (0-0.4); Eosinophil % 0.9 % (0.00-5.0); Eosinophil (Absolute #) 0.09 (0-0.5); Hematocrit 27.5 % (35-47); Hemoglobin 8.4 gm/dl (12.0-16.0); Lymphocytes % 20.9 % (24.0-44.0); Mean Cell Volume 80.2 fl (78-100); Mean Corpuscular Hemoglobin 24.5 pg (26-32); Mean Corpuscular Hgb Concent. 30.5 g/dl (32-36); Mean Platelet Volume 10.5 fl (7.5-11.0); Monocyte (Absolute #) 0.68 (0.0-1.3); Monocytes % 7.1 % (0.0-12.0); Neutrophil % 70.9 % (36.0-66.0); Platelet Count 233 K/mm3 (150-450); Red Blood Count 3.43 M/mm3 (4.1-5.4); Red Cell Distribution Width 16.2 % (11.5-14.0); White Blood Count 9.6 K/mm3 (4.0-10.5)
[2022-01-01 21:00] LABS: Appearance CLEAR (CLEAR); Bilirubin NEGATIVE (NEGATIVE); Glucose NEGATIVE (NEGATIVE); Ketones NEGATIVE (NEGATIVE); RBC NEGATIVE Ery/ul (0-5); Specific Gravity 1.015 (1.005-1.025)
[2022-01-01 21:01] LABS: Dipstick done @ ? MAIN LAB; Nitrite NEGATIVE (NEGATIVE); Ph 6.5 (5-6); Protein,Urine Dip NEGATIVE (Negative); Urobilinogen 0.2 mg/dL (0-1)
[2022-01-01 21:03] LABS: Epithelial Cells RARE /HPF (FEW)
[2022-01-01 21:10] LABS: Amphetamine,Urine NEGATIVE (NEGATIVE); Barbiturate,Urine NEGATIVE (NEGATIVE); Benzodiazepine,Urine NEGATIVE (NEGATIVE); Cocaine,Urine NEGATIVE (NEGATIVE); Methadone,Urine NEGATIVE (NEGATIVE); Opiate,Urine NEGATIVE (NEGATIVE); PCP,Urine NEGATIVE (NEGATIVE); THC,Urine NEGATIVE (NEGATIVE)
[2022-01-01 21:20] LABS: Urine Cultured Indicated? NO
[2022-01-01] MEDS ORDERED: STADOL 2 MG IV PRN (22:47)
[2022-01-02] MEDS ORDERED: Lactated Ringers 1,000 ML IV ONE ×2 (00:07→06:00)
[2022-01-02] MEDS: Lactated Ringers 1,000 ML IV SCH ×2 (00:13→08:24)
[2022-01-02] MEDS: CYTOTEC PO SCH ×4 (00:19→06:31)
[2022-01-02] MEDS: Zofran 4 MG/2 ML VIAL IV PRN ×2 (00:32→08:24)
[2022-01-02] MEDS ORDERED: Ephedrine Sulfate 50 MG/ML IV PRN (07:00)
[2022-01-02] MEDS ORDERED: BRETHINE 1 MG/ML SQ PRN (07:00)
[2022-01-02] MEDS ORDERED: FENTANYL 2 MCG-BUPIV 0.125%-NS 250 ML Epidur 250 ML EPIDURAL SCH (07:00)
[2022-01-02] MEDS ORDERED: PITOCIN 30 UNITS/ LR 500 ML 30 UNITS/500 ML PLAST..BAG IV SCH ×2 (07:00→08:00)
[2022-01-02] MEDS ORDERED: Dulcolax 10 MG SUPP PR PRN (08:00)
[2022-01-02] MEDS ORDERED: CORTISONE 1% CREAM TP PRN (08:00)
[2022-01-02] MEDS ORDERED: TUCKS TP PRN (08:00)
[2022-01-02] MEDS ORDERED: Dermoplast Spray TP PRN (08:00)
[2022-01-02] MEDS ORDERED: XYLOCAINE 1% HCL 20 ML MDV IJ PRN (08:00)
[2022-01-02] MEDS ORDERED: Anucort-HC SUPPOSITORY PR PRN (08:00)
[2022-01-02] MEDS ORDERED: LANSINOH 40 GM TOP PRN (08:00)
[2022-01-02] MEDS ORDERED: Zofran 4 MG/2 ML VIAL ONE ×2 (08:50→09:56)
[2022-01-02] MEDS ORDERED: Decadron 4 MG INJ ONE ×2 (08:50→09:25)
[2022-01-02] MEDS ORDERED: TORAdol 30 mg Injection ONE (08:50)
[2022-01-02] MEDS ORDERED: SUBLIMAZE 100 MCG/2 ML ONE ×2 (08:50→10:04)
[2022-01-02] MEDS ORDERED: Xylocaine-Mpf 2% 5 Ml Vial ONE (08:50)
[2022-01-02] MEDS ORDERED: DIPRIVAN 200 MG/20 ML IV ONE (08:50)
[2022-01-02] MEDS ORDERED: Sodium Chloride 0.9% 100 ML BAG 100 ML ONE (09:11)
[2022-01-02] MEDS ORDERED: TRANEXAMIC ACID 1000 MG/10 ML 1,000 MG in Sodium Chloride 0.9% 100 ML BAG 100 ML IV ONE (09:15)
[2022-01-02] MEDS ORDERED: Zemuron 100 MG/10 ML ONE (09:20)
[2022-01-02] MEDS ORDERED: Pitocin 10 UNITS/ML ONE (09:20)
[2022-01-02] MEDS ORDERED: Marcaine 0.5%/Epinephrine 10 ML ONE (09:20)
[2022-01-02] MEDS ORDERED: PHENYLEPHRINE HCL ONE (09:20)
[2022-01-02] MEDS ORDERED: BRIDION 200MG/2ML IV ONE (09:25)
[2022-01-02 09:40] LABS: VBG CARBOXYHEMOGLOBIN 1.7 % T HGB (0.0-6.9); VBG HCO3- 22.3 meq/L (22-28); VBG HEMOGLOBIN 13.2; VBG O2 SATURATION 91.9 (95-100); VBG POTASSIUM 4.2 (3.5-5.1); VBG pH 7.4 (7.32-7.42)
[2022-01-02] MEDS ORDERED: Hydromorphone 1 mg/ml Injection ONE (10:04)
--- NOTE | 2022-01-02 10:20 | XRAY ---
Indication: Aspiration. Post section. Comparison: None Portable apical lordotic chest demonstrates normal heart, lungs, and bony thorax.
[2022-01-02] MEDS ORDERED: Sodium Chloride 0.9% 1000 ML 1,000 ML ONE (11:07)
[2022-01-02] MEDS: CEFAZOLIN 2 GM-D5W BAG** 2 GM/50 ML ML IV SCH ×2 (11:54→20:06)
[2022-01-02] MEDS: MOTRIN 400 MG PO PRN ×2 (12:38→22:10)
[2022-01-02] MEDS: Dextrose 5%-Lr IV Solution 1000 ML 1,000 ML IV SCH ×2 (13:15→20:11)
[2022-01-02] MEDS ORDERED: NORCO 5/325 MG PO PRN (13:37)
[2022-01-02 15:15] LABS: Appearance CLEAR (CLEAR); Bilirubin NEGATIVE (NEGATIVE); Dipstick done @ ? MAIN LAB; Glucose NEGATIVE (NEGATIVE); Ketones TRACE (NEGATIVE); Nitrite NEGATIVE (NEGATIVE); Protein,Urine Dip NEGATIVE (Negative); RBC MODERATE Ery/ul (0-5); Specific Gravity 1.015 (1.005-1.025); Urobilinogen 0.2 mg/dL (0-1)
[2022-01-02 15:26] LABS: Bacteria RARE /HPF (NEGATIVE); Epithelial Cells RARE /HPF (FEW); Mucus SLIGHT /HPF (NEGATIVE)
[2022-01-02 19:06] LABS: Hematocrit 25.3 % (35-47); Hemoglobin 8.2 gm/dl (12.0-16.0); Mean Cell Volume 83.2 fl (78-100); Mean Corpuscular Hgb Concent. 32.4 g/dl (32-36); Mean Platelet Volume 10.4 fl (7.5-11.0); Platelet Count 214 K/mm3 (150-450); Red Blood Count 3.04 M/mm3 (4.1-5.4); Red Cell Distribution Width 16.5 % (11.5-14.0); White Blood Count 16.1 K/mm3 (4.0-10.5)
[2022-01-02] MEDS: Docusate Sodium 100 MG PO SCH (22:09)
[2022-01-02] MEDS: TYLENOL EXTRA STRENGTH 500 MG PO PRN (22:10)
[2022-01-02] MEDS ORDERED: Ambien 10 MG PO PRN (23:52)
[2022-01-03] MEDS ORDERED: Ambien 10 MG PO PRN (00:07)
[2022-01-03] MEDS: TYLENOL EXTRA STRENGTH 500 MG PO PRN ×3 (03:01→22:00)
[2022-01-03] MEDS: CEFAZOLIN 2 GM-D5W BAG** 2 GM/50 ML ML IV SCH (03:19)
[2022-01-03] MEDS: Mylicon 80MG PO PRN ×3 (03:39→19:54)
[2022-01-03 05:39] VITALS: O2SAT 100
[2022-01-03 05:40] LABS: Absolute Neutrophil Ct (ANC) 11.03 (1.4-6.9); Basophil (Absolute #) 0 (0-0.4); Eosinophil % 0.2 % (0.00-5.0); Eosinophil (Absolute #) 0.03 (0-0.5); Hematocrit 22.2 % (35-47); Hemoglobin 7.1 gm/dl (12.0-16.0); Lymphocyte (Absolute #) 2.04 (1.0-4.6); Lymphocytes % 14.4 % (24.0-44.0); Mean Cell Volume 83.8 fl (78-100); Mean Corpuscular Hemoglobin 26.8 pg (26-32); Mean Platelet Volume 10.5 fl (7.5-11.0); Monocyte (Absolute #) 1.07 (0.0-1.3); Monocytes % 7.6 % (0.0-12.0); Neutrophil % 77.8 % (36.0-66.0); Platelet Count 207 K/mm3 (150-450); Red Blood Count 2.65 M/mm3 (4.1-5.4); Red Cell Distribution Width 16.6 % (11.5-14.0); White Blood Count 14.2 K/mm3 (4.0-10.5)
[2022-01-03] MEDS: MOTRIN 400 MG PO PRN ×3 (05:58→19:54)
--- NOTE | 2022-01-03 08:29 | OP ---
SURGERY DATE/TIME: 01/02/2022 0855 PREOPERATIVE DIAGNOSIS: Intrauterine at 39 weeks gestation with cord prolapse. POSTOPERATIVE DIAGNOSIS: Intrauterine at 39 weeks gestation with cord prolapse. PROCEDURE: Primary section, low flap transverse uterine incision, Pfannenstiel skin incision. SURGEON: John Conway D.O. SEC ACCOUNTANT: Tushar Tee, surgical manager. ANESTHESIA: General. ESTIMATED BLOOD LOSS: 650 cc. COMPLICATIONS: None. INDICATIONS: The risks, benefits, indications and alternatives of the procedure were reviewed with the patient prior to procedure. The patient understood the risk of infection, bleeding, bowel injury, bladder injury, ureteral injury, uterine perforation, pelvic infection and thromboembolic disorder associated with the surgery however desires to have this surgery as a possible means to alleviate her current medical condition. DESCRIPTION OF PROCEDURE AND FINDINGS: At this point the patient is taken under emergency situation from her laboring room to the operating room where she was placed under general anesthesia which was found to be adequate. She was then prepared and draped in normal sterile fashion in the dorsal supine position with a leftward tilt. A Pfannenstiel skin incision is made with a scalpel and carried down through to the underlying layer of the fascia with a knife. The fascia was then incised in the midline and the incision extended laterally with the knife. The incision was extended through the fascia, through the muscle where the bladder was then visualized. From this point under STAT situation, the incision of the uterus was then incised and extended laterally where a bladder flap was now developed. From this point, the bladder blade was then removed and the infants head was delivered atraumatically and was noted to have a cord around the shoulder region. The nose and mouth were suctioned with bulb suction. The cord clamped and cut. The infant was then handed off to awaiting nurses at this point. Cord gas was sent. The placenta was then removed manually. The uterus exteriorized and cleared of all clots and debris. The uterine incision was repaired with 1-0 chromic in a running locked fashion. A second layer of the same suture was used to obtain excellent hemostasis. There was continued bleeding that was noted and tranexamic acid (TXA) 1 gm was given as well as Methergine 0.2 mg. From this point, the uterine incision was repaired with 1-0 chromic in running locked fashion and the second layer of the same suture was used to obtain excellent hemostasis. The uterus is then returned to the abdomen. The gutters were cleared of clots and the peritoneal muscles were closed with 2-0 chromic suture. The fascia was re-approximated with 0 Vicryl in running fashion. The subcutaneous layer was closed with 3-0 Vicryl suture and the skin was closed with absorbable cecille called INSORB. The patient tolerated the procedure well. Sponge, lap, needle and instrument counts were correct x2. The patient was then taken out of anesthesia and taken to the recovery room in stable condition. The patient delivered a live baby boy at 0901 hours, weight of the baby was 8 pounds 15 ounces and 's were 3, 1 and 9.
[2022-01-03] MEDS ORDERED: FERREX 150 PO SCH (10:00)
[2022-01-03] MEDS ORDERED: ENOXAPARIN SODIUM SQ ONE (10:00)
[2022-01-03] MEDS: Docusate Sodium 100 MG PO SCH ×2 (10:23→22:01)
[2022-01-03] MEDS: FEOSOL 325 MG PO SCH ×3 (10:24→22:01)
--- NOTE | 2022-01-03 11:07 | PCM.NOTE ---
Date and Time: 01/03/22 1103 Subjective Assessment: pod 1 sp csection pt resting in bed and doing well ambulating and tolerating diet vss afebrile abd; soft incision c/d/intact uterus; firm lochia; mild hgb ; 7.1 ap sp csection pod 1 with postop anemia will add iron supplementation to tid encourage ambulation anticipate discharge tomorrow OBJECTIVE DATA Vital Signs: Vital Signs - 24 hr Temp Pulse Resp BP Pulse Ox 01/03/22 09:00 100 01/03/22 08:00 97.6 F 96 H 20 106/55 100 01/03/22 06:56 100 01/03/22 06:00 100 01/03/22 05:00 100 01/03/22 04:00 97.8 F 120 H 20 123/72 99 01/03/22 03:00 98 01/03/22 02:00 78 20 98 01/03/22 00:54 98 01/03/22 00:00 98.9 F 81 20 104/61 81 L 01/02/22 23:00 98 01/02/22 22:00 99 01/02/22 21:00 98 01/02/22 20:00 100 F 97 H 16 109/64 98 01/02/22 19:00 99 01/02/22 18:00 99 01/02/22 17:00 97.5 F 78 20 109/60 99 01/02/22 16:00 100 01/02/22 15:00 99 01/02/22 14:00 97.2 F 90 20 106/63 100 01/02/22 13:00 97.1 F 78 20 108/66 99 01/02/22 12:20 100 01/02/22 12:00 97.4 F 95 H 20 99/60 100 01/02/22 11:45 97.4 F 93 H 20 101/55 100 01/02/22 11:30 97.4 F 93 H 20 101/55 100 01/02/22 11:15 97.7 F 92 H 20 106/62 100 Pain Assessment - Last Documented Pain Intensity [Lower] 2 Pain Intensity 7 Pain Scale Used 0-10 Pain Scale Intake and Output: Intake & Output 12/31/21 01/01/22 01/02/22 01/03/22 11:59 11:59 11:59 11:59 Intake Total 1100 9206 Output Total 5850 Balance 1100 3356 Weight 87.09 kg Lab Results: Lab Results-Last 24 Hours 01/02/22 01/02/22 01/03/22 Range/Units 09:35 18:32 04:40 WBC 16.1 H 14.2 H (4.0-10.5) K/mm3 RBC 3.04 L 2.65 L (4.1-5.4) M/mm3 Hgb 8.2 L 7.1 L (12.0-16.0) gm/dl Hct 25.3 L 22.2 L (35-47) % MCV 83.2 83.8 (78-100) fl MCH 27.0 26.8 (26-32) pg MCHC 32.4 32.0 (32-36) g/dl RDW 16.5 H 16.6 H (11.5-14.0) % Plt Count 214 207 (150-450) K/mm3 MPV 10.4 10.5 (7.5-11.0) fl Gran % 77.8 H (36.0-66.0) % Eos # (Auto) 0.03 (0-0.5) Absolute Lymphs (auto) 2.04 (1.0-4.6) Absolute Monos (auto) 1.07 (0.0-1.3) Lymphocytes % 14.4 L (24.0-44.0) % Monocytes % 7.6 (0.0-12.0) % Eosinophils % 0.2 (0.00-5.0) % Basophils % 0.0 (0.0-0.4) % Absolute Granulocytes 11.03 H (1.4-6.9) Basophils # 0 (0-0.4) Urinalys Dipstick Clnc MAIN LAB Urine Color YELLOW (YELLOW) Urine Appearance CLEAR (CLEAR) Urine pH 7.0 (5-6) Ur Specific [place]ossom 1.015 (1.005-1.025) POC Urine Protein Conf NEGATIVE (Negative) Urine Ketones TRACE (NEGATIVE) Urine Nitrite NEGATIVE (NEGATIVE) Urine Bilirubin NEGATIVE (NEGATIVE) Urine Urobilinogen 0.2 (0-1) mg/dL Urine Leukocytes NEGATIVE (NEGATIVE) Urine WBC (Auto) 3-5 (0-5) /HPF Urine RBC (Auto) 16-25 (0-2) /HPF U Epithel Cells (Auto) RARE (FEW) /HPF Urine Bacteria (Auto) RARE (NEGATIVE) /HPF Urine RBC MODERATE (0-5) Dave/ul Urine Mucus (Auto) SLIGHT (NEGATIVE) /HPF Urine Glucose NEGATIVE (NEGATIVE) mg/dL Radiology Exams: Radiology Procedures Category Date Time Status CHEST 1 VIEW (PORTABLE) Stat Exams 01/02/22 09:49 Completed Assessment/Plan (1) Prolapse of umbilical cord Current Visit: Yes Status: Acute Code(s): O69.0XX0 - LABOR AND DELIVERY COMPLICATED BY PROLAPSE OF CORD, UNSP (2) Status post primary low transverse section Current Visit: Yes Status: Acute Code(s): Z98.891 - HISTORY OF UTERINE SCAR FROM PREVIOUS SURGERY (3) Postoperative anemia Current Visit: Yes Status: Acute Code(s): D64.9 - ANEMIA, UNSPECIFIED
[2022-01-03] MEDS: NORCO 5/325 MG PO PRN ×3 (13:07→23:57)
[2022-01-03] MEDS ORDERED: Adacel Vial IM ONE (16:31)
[2022-01-03 18:12] LABS: Hematocrit 24.1 % (35-47); Hemoglobin 7.5 gm/dl (12.0-16.0); Mean Cell Volume 84.9 fl (78-100); Mean Corpuscular Hemoglobin 26.4 pg (26-32); Mean Corpuscular Hgb Concent. 31.1 g/dl (32-36); Mean Platelet Volume 10.1 fl (7.5-11.0); Platelet Count 251 K/mm3 (150-450); Red Blood Count 2.84 M/mm3 (4.1-5.4); Red Cell Distribution Width 17.1 % (11.5-14.0); White Blood Count 14.2 K/mm3 (4.0-10.5)
[2022-01-03 19:14] LABS: HBsAg Screen Negative (Negative)
[2022-01-04] MEDS: MOTRIN 400 MG PO PRN ×2 (03:59→11:54)
[2022-01-04] MEDS: Zofran 4 MG/2 ML VIAL IV PRN (04:23)
[2022-01-04] MEDS: NORCO 5/325 MG PO PRN ×2 (04:59→09:07)
--- NOTE | 2022-01-04 08:05 | PCM.NOTE ---
Date and Time: 01/04/22 0803 Subjective Assessment: pod 2 pt resting in bed and doing well feeling some anxiety. ambulating and tolerating diet vss afebrile abd; soft incision c/d/intact uterus; firm lochia; mild a/p sp csection pod 2 anemia dc home advised iron supplementatin tid for 30 days advised zoloft should fu office 2 wks OBJECTIVE DATA Vital Signs: Vital Signs - 24 hr Temp Pulse Resp BP Pulse Ox 01/04/22 00:00 98.2 F 90 22 120/71 100 01/03/22 19:00 99.3 F 108 H 18 120/73 100 01/03/22 13:54 110 H 18 121/74 01/03/22 09:00 100 Pain Assessment - Last Documented Pain Intensity [Lower] 0 Pain Intensity 5 Pain Scale Used 0-10 Pain Scale Intake and Output: Intake & Output 01/01/22 01/02/22 01/03/22 01/04/22 11:59 11:59 11:59 11:59 Intake Total 1100 9206 1700 Output Total 5850 Balance 1100 3356 1700 Weight 87.09 kg Lab Results: Lab Results-Last 24 Hours 01/01/22 01/03/22 Range/Units 20:41 18:00 WBC 14.2 H (4.0-10.5) K/mm3 RBC 2.84 L (4.1-5.4) M/mm3 Hgb 7.5 L (12.0-16.0) gm/dl Hct 24.1 L (35-47) % MCV 84.9 (78-100) fl MCH 26.4 (26-32) pg MCHC 31.1 L (32-36) g/dl RDW 17.1 H (11.5-14.0) % Plt Count 251 (150-450) K/mm3 MPV 10.1 (7.5-11.0) fl Hep Bs Antigen Negative (Negative) Radiology Exams: Radiology Procedures Category Date Time Status CHEST 1 VIEW (PORTABLE) Stat Exams 01/02/22 09:49 Completed Assessment/Plan (1) Prolapse of umbilical cord Current Visit: Yes Status: Acute Code(s): O69.0XX0 - LABOR AND DELIVERY COMPLICATED BY PROLAPSE OF CORD, UNSP (2) Status post primary low transverse section Current Visit: Yes Status: Acute Code(s): Z98.891 - HISTORY OF UTERINE SCAR FROM PREVIOUS SURGERY (3) Postoperative anemia Current Visit: Yes Status: Acute Code(s): D64.9 - ANEMIA, UNSPECIFIED
--- NOTE | 2022-01-04 08:14 | PCM.DS ---
Discharge Summary Date of Admission: 01/02/22 08:50 Admitting Physician: AMBROSE AGUILAR DO Consults: Consults on Case 01/02/22 07:00 Notify Anesthesia Provider PRN Primary Care Provider: FELISA HUGGINS Allergies Allergies No Known Drug Allergies Allergy (Verified 01/01/22 00:32) Hospital Summary - Hospital Course Hospital Course: pt admitted on january 01 for oral cytotec for induction and had arom on january 02 in the am however was noted having a cord prolapse and was subsequently taken to the OR for emergency csection and delivered live baby boy without complication on january 02. during operative procedure pt was noted having significant blood loss and was transfused 2 units prbc and was given txa 1 gm and methergine. during postop period did well and had stable hgb level at 7.5 before discharge and at this time stable for discharge. pt did exhibit anxiety and was sent home on zoloft and pt requested zofran. pt will be going home on norco for pain management. incision c/d/intact. - Vitals & Intake/Output Vital Signs: Vital Signs Temperature 98.2 F 01/04/22 00:00 Pulse Rate 90 01/04/22 00:00 Respiratory Rate 22 01/04/22 00:00 Blood Pressure 120/71 01/04/22 00:00 O2 Sat by Pulse Oximetry 100 01/04/22 00:00 Intake & Output: Intake & Output 01/01/22 01/02/22 01/03/22 01/04/22 11:59 11:59 11:59 11:59 Intake Total 1100 9206 1700 Output Total 5850 Balance 1100 3356 1700 Weight 87.09 kg - Lab Result Diagrams: 01/03/22 18:00 Lab Results-Last 24 Hrs: Lab Results-Last 24 Hours 01/01/22 01/03/22 Range/Units 20:41 18:00 WBC 14.2 H (4.0-10.5) K/mm3 RBC 2.84 L (4.1-5.4) M/mm3 Hgb 7.5 L (12.0-16.0) gm/dl Hct 24.1 L (35-47) % MCV 84.9 (78-100) fl MCH 26.4 (26-32) pg MCHC 31.1 L (32-36) g/dl RDW 17.1 H (11.5-14.0) % Plt Count 251 (150-450) K/mm3 MPV 10.1 (7.5-11.0) fl Hep Bs Antigen Negative (Negative) Micro Results-Entire Visit: Microbiology 01/02/22 09:35 Urine Culture - Preliminary Catherized NO GROWTH TO DATE - Radiology Exams Ordered Rad Exams-Entire Visit: Radiology Procedures Category Date Time Status CHEST 1 VIEW (PORTABLE) Stat Exams 01/02/22 09:49 Completed - Procedures and Test Procedures and Tests throughout Hospitalization: Therapy Orders & Screens 01/02/22 10:41 Standby STAT Comment: Diagnosis: IUP, IOL Final Diagnosis/Problem List - Final Discharge Diagnosis/Problem (1) Prolapse of umbilical cord Current Visit: Yes Status: Acute Code(s): O69.0XX0 - LABOR AND DELIVERY COMPLICATED BY PROLAPSE OF CORD, UNSP (2) Status post primary low transverse section Current Visit: Yes Status: Acute Code(s): Z98.891 - HISTORY OF UTERINE SCAR FROM PREVIOUS SURGERY (3) Postoperative anemia Current Visit: Yes Status: Acute Code(s): D64.9 - ANEMIA, UNSPECIFIED - Discharge Disposition: Home, Self-Care Condition: Stable Prescriptions: New Hydrocodone/Acetaminophen [Hydrocodone-Acetamin 5-325 mg] 1 tab PO Q6HPRN PRN #26 tablet MDD 4 PRN Reason: Pain Ondansetron ODT 4 MG [Zofran Odt 4 mg] 4 mg PO Q6HPRN PRN #30 applic PRN Reason: Nausea Sertraline HCl 50 mg [Zoloft 50 mg Tablet] 50 mg PO DAILY 30 Days #30 tab No Action Vits W-Ca,Fe,FA(<1Mg) [] 1 ea PO DAILY Ondansetron ODT 4 MG [Zofran Odt 4 mg] 1 ea PO DAILY buPROPion HCL [Wellbutrin Sr] 1 ea DAILY Albuterol Common Canister [Ventolin Common Canister] 2 puff IH Q4-6HPRN PRN PRN Reason: Allergies Ferrous Sulfate 325 mg PO DAILY Cetirizine HCl [Zyrtec] 10 mg PO DAILY Follow up with: FELISA HUGGINS MD [Primary Care Provider] - AMBROSE AGUILAR DO [ACTIVE STAFF] - 2 weeks
[2022-01-04] MEDS ORDERED: PITOCIN 30 UNITS/ LR 500 ML 500 ML IV ONE (08:44)
[2022-01-04] MEDS ORDERED: Lactated Ringers 1,000 ML IV ONE (08:44)
[2022-01-04] MEDS: Docusate Sodium 100 MG PO SCH (09:07)
[2022-01-04] MEDS: FEOSOL 325 MG PO SCH (09:07)
[2022-01-04 11:21] VITALS: BP 111/66; PULSE 111
[2022-01-04] MEDS: Mylicon 80MG PO PRN (12:04)
== END 2022-01-04 12:35 | disposition home or self-care (01) | DRG 788 ==
LOC: OB 08:50 → OBSVTOIN 01-02 08:50
PROVIDERS: ADMIT Obstetrics & Gynecology; ATTEND Obstetrics & Gynecology
PROC: 10D00Z1 Extraction of Products of Conception, Low, Open Approach (ICD-10-PCS; principal; 2022-01-02)
DX: O69.0XX0 Labor and delivery complicated by prolapse of cord, not applicable or unspecified (principal); Z3A.39 39 weeks gestation of pregnancy; Z37.0 Single live birth; D64.9 Anemia, unspecified; F41.9 Anxiety disorder, unspecified; Z98.891 History of uterine scar from previous surgery
CPT/HCPCS: 36415; 36430; 59510; 64488; 71045; 76937; 76942; 80307; 81001; 81015; 82805; 85025; 85027; 86922; 87086; 87340; 90471; 90715; 94799; 99140; G0378; J0595; J0690; J1100; J1170; J1650; J1885; J2370; J2405; J2590; J2704; J3010; L0625; P9016; A9270-GY

== ENCOUNTER 2022-12-05 07:04 | Observation (INO) | payer BC, OTHER ==
[2022-12-05] MEDS ORDERED: Lactated Ringers 1,000 ML IV SCH (07:30)
[2022-12-05] MEDS ORDERED: CEFAZOLIN 2 GM-D5W BAG** 2 GM/50 ML ML IV SCH (07:30)
[2022-12-05] MEDS ORDERED: CEFAZOLIN 2 GM-D5W BAG** 2 GM/50 ML ML IV ONE (07:33)
[2022-12-05] MEDS ORDERED: Lactated Ringers 1,000 ML IV ONE ×2 (07:33→10:01)
[2022-12-05] MEDS ORDERED: Transderm Scop 1.5MG Patch TOP PRN (08:04)
[2022-12-05] MEDS ORDERED: Transderm Scop 1.5MG Patch ONE (08:04)
[2022-12-05] MEDS ORDERED: ROBINUL ONE (08:47)
[2022-12-05] MEDS ORDERED: Versed 2 MG/2 ML Injection ONE (08:47)
[2022-12-05] MEDS ORDERED: DIPRIVAN 200 MG/20 ML IV ONE (08:51)
[2022-12-05] MEDS ORDERED: Decadron 4 MG INJ ONE (08:52)
[2022-12-05] MEDS ORDERED: Quelicin Fliptop 200 MG/10 ML ONE (08:52)
[2022-12-05] MEDS ORDERED: TORAdol 30 mg Injection ONE (08:52)
[2022-12-05] MEDS ORDERED: Zofran 4 MG/2 ML VIAL ONE (08:52)
[2022-12-05] MEDS ORDERED: SUBLIMAZE 100 MCG/2 ML ONE (08:52)
[2022-12-05] MEDS ORDERED: Xylocaine-Mpf 2% 5 Ml Vial ONE (08:53)
[2022-12-05] MEDS ORDERED: VERSED 5 MG/5 ML ONE ×2 (09:36→09:55)
[2022-12-05 10:19] LABS: BASOPHIL % 0.6 % (0.0-0.4); Basophil (Absolute #) 0.04 x10^3/uL (0-0.4); Eosinophil % 0.8 % (0.00-5.0); Eosinophil (Absolute #) 0.05 x10^3/uL (0-0.5); Hematocrit 39.3 % (35-47); Hemoglobin 12.5 g/dL (12.0-16.0); IMMATURE GRAN # 0.02 x10^3u/L (0.00-0.03); IMMATURE GRAN % 0.3 % (0.00-0.4); Lymphocyte (Absolute #) 1.14 x10^3/uL (1.0-4.6); Lymphocytes % 17.4 % (24.0-44.0); Mean Corpuscular Hemoglobin 26.7 pg (26-32); Mean Corpuscular Hgb Concent. 31.8 g/dL (32-36); Mean Platelet Volume 9.8 fL (7.5-11.0); Monocyte (Absolute #) 0.21 x10^3/uL (0.0-1.3); Monocytes % 3.2 % (0.0-12.0); Neutrophil % 77.7 % (36.0-66.0); Platelet Count 262 x10^3/uL (150-450); Red Blood Count 4.68 x10^6/uL (4.1-5.4); White Blood Count 6.6 x10^3/uL (4.0-10.5)
[2022-12-05 10:35] LABS: ALKALINE PHOSPHATASE 59 U/L (38-126); ANION GAP 13.6 MEQ/L (5-15); BLOOD UREA NITROGEN 8 mg/dL (7-17); CHLORIDE 105 mmol/L (98-107); Calcium 8.7 mg/dL (8.4-10.2); Carbon Dioxide 25 mmol/L (22-30); Creatinine 1 0.71 mg/dL (0.52-1.04); EST GLOMERULAR FILTRATION RATE > 60.0 ML/MIN; Glucose 94 mg/dL (74-106); Potassium 4.4 mmol/L (3.5-5.1); SGOT/AST 25 U/L (14-36); SGPT/ALT 26 U/L (0-35); SODIUM 139 mmol/L (137-145); Total Protein 6.7 g/dL (6.3-8.2)
--- NOTE | 2022-12-05 10:45 | XRAY ---
Indication: Seizure post surgery. No known injury. Multiple contiguous axial images obtained through the head without contrast. Comparison: None Normal appearing brain parenchyma, ventricles, and bony calvarium. Complete opacification visualized right maxillary sinus and mild mucosal thickening right ethmoid sinus. Mastoid air cells are clear. Impression: Paranasal sinus disease. Remaining CT head without contrast exam is negative.
[2022-12-05] MEDS ORDERED: Ativan 2 MG/1 ML VIAL IV PRN (10:54)
[2022-12-05 11:15] LABS: Candida Group DETECTED (NEGATIVE)
[2022-12-05] MEDS ORDERED: VENTOLIN COMMON CANISTER IH PRN (12:39)
[2022-12-05] MEDS ORDERED: MEDICATION INTERVENTION MC SCH (13:00)
[2022-12-05] MEDS: Wellbutrin SR 150 MG PO SCH (13:28)
[2022-12-05] MEDS: FEOSOL 325 MG PO SCH (13:28)
[2022-12-05] MEDS: MOTRIN 600 MG PO PRN (17:37)
[2022-12-05] MEDS ORDERED: Sodium Chloride 0.9% 1000 ML 1,000 ML IV STA (19:43)
[2022-12-05] MEDS ORDERED: Ativan 2 MG/1 ML VIAL IV ONE (20:00)
--- NOTE | 2022-12-05 21:28 | PCM.HP ---
History of Present Illness - Chief Complaint Chief Complaint: Seizure activitye after anaesthesia for procedure History of Present Illness: is a 32 year old female underwent hysteroscopy under general anesthesia and during recovery She has 3 seizure activities. She did not have any past history of seizure disorder - Review of Systems Constitutional: No Fever, No Chills Eyes: No Symptoms Ears, Nose, & Throat: No Symptoms Respiratory: No Cough, No Short Of Breath Cardiac: No Chest Pain, No Edema, No Syncope Abdominal/Gastrointestinal: No Abdominal Pain, No Nausea, No Vomiting, No Diarrhea Genitourinary Symptoms: No Dysuria Musculoskeletal: No Back Pain, No Neck Pain Skin: No Rash Neurological: Seizure, No Dizziness, No Focal Weakness, No Sensory Changes Psychological: No Symptoms Endocrine: No Symptoms Hematologic/Lymphatic: No Symptoms Immunological/Allergic: No Symptoms Medications & Allergies Home Medications: Home Medication List buPROPion HCL [Wellbutrin Sr] 300 mg PO DAILY 06/13/21 [History Confirmed 12/05/22] Ferrous Sulfate 325 mg PO DAILY 01/01/22 [History Confirmed 12/05/22] Albuterol Sulfate [Albuterol Sulfate Hfa] 2 puffs IH Q6HPRN PRN 12/05/22 [History Confirmed 12/05/22] Norgestrel-Ethinyl Estradiol [Elinest] 1 tab PO DAILY 12/05/22 [History Confir med 12/05/22] PANTOPRAZOLE 40 mg Tablet [Protonix 40MG Tablet] 40 mg PO QPM 12/05/22 [History Confirmed 12/05/22] Allergies/Adverse Reactions: Allergies Allergy/AdvReac Type Severity Reaction Status Date / Time glycopyrrolate [From Celia] AdvReac Severe Verified 12/05/22 11:39 scopolamine AdvReac Severe Verified 12/05/22 10:22 - Past Medical History Past Medical History: Yes Neurological History: No Pertinent History ENT History: No Pertinent History Cardiac History: No Pertinent History Respiratory History: Asthma Endocrine Medical History: No Pertinent History Musculoskelatal History: No Pertinent History GI Medical History: GERD History: No Pertinent History Pyscho-Social History: Anxiety, Depression Reproductive Disorders: Abnormal Uterine Bleeding, Other Comment: EPTOPIC X1, SVDX2, cervical displasia; anemia - Female History Hx Last Menstrual Period: 12/05/2022 Are you now?: No - Past Surgical History Past Surgical History: Yes Neuro Surgical History: No Pertinent History Cardiac History: No Pertinent History Respiratory Surgery: No Pertinent History GI Surgical History: Appendectomy, Cholecystectomy Genitourinary Surgical Hx: No Pertinent History Musculskeletal Surgical Hx: No Pertinent History Female Surgical History: Dilation & Curettage, Section, Other Other Surgical History: leep - Social History Smoking Status: Never smoker Exposure to second hand smoke: No Alcohol: Rarely Drug Use: none Significant Family History: no pertinent family hx - Physical Exam Vital Signs: Vital Signs - 24 hr Temp Pulse Resp BP Pulse Ox 12/05/22 19:35 98.4 F 120 H 18 122/66 96 12/05/22 19:30 126 H 18 96 12/05/22 16:00 97.8 F 117 H 17 113/68 98 12/05/22 15:18 82 16 98 12/05/22 11:54 97.5 F 89 17 119/66 98 12/05/22 11:05 97.5 F 89 17 119/66 98 12/05/22 07:57 97.3 F 98 H 18 115/91 98 12/05/22 07:46 97.3 F 98 H 18 115/91 98 General Appearance: no apparent distress, alert Neurologic Exam: alert, oriented x 3, cooperative, normal mood/affect, nml cerebellar function, nml station & gait, sensation nml, No motor deficits Eye Exam: PERRL/EOMI, eyes nml inspection Ears, Nose, Throat Exam: normal ENT inspection, TMs normal, pharynx normal, moist mucous membranes Neck Exam: normal inspection, non-tender, supple, full range of motion Respiratory Exam: normal breath sounds, lungs clear, No respiratory distress Cardiovascular Exam: regular rate/rhythm, normal heart sounds, normal peripheral pulses Gastrointestinal/Abdomen Exam: soft, normal bowel sounds, No tenderness, No mass Back Exam: normal inspection, normal range of motion, No CVA tenderness, No vertebral tenderness Extremity Exam: normal inspection, normal range of motion, pelvis stable Skin Exam: normal color, warm, dry, No rash Lymphatic Exam: No adenopathy Results - Labs Lab/Micro Results: Lab Results-Last 24 Hours 12/05/22 12/05/22 12/05/22 Range/Units 07:31 09:18 10:17 WBC (4.0-10.5) x10^3/uL RBC (4.1-5.4) x10^6/uL Hgb (12.0-16.0) g/dL Hct (35-47) % MCV (78-100) fL MCH (26-32) pg MCHC (32-36) g/dL RDW (11.5-14.0) % Plt Count (150-450) x10^3/uL MPV (7.5-11.0) fL Gran % (36.0-66.0) % Immature Gran % (Auto) (0.00-0.4) % Nucleat RBC Rel Count (0.00-0.1) % Eos # (Auto) (0-0.5) x10^3/uL Immature Gran # (Auto) (0.00-0.03) x10^3u/L Absolute Lymphs (auto) (1.0-4.6) x10^3/uL Absolute Monos (auto) (0.0-1.3) x10^3/uL Absolute Nucleated RBC (0.00-0.01) x10^3u/L Lymphocytes % (24.0-44.0) % Monocytes % (0.0-12.0) % Eosinophils % (0.00-5.0) % Basophils % (0.0-0.4) % Absolute Granulocytes (1.4-6.9) x10^3/uL Basophils # (0-0.4) x10^3/uL Sodium 139 (137-145) mmol/L Potassium 4.4 (3.5-5.1) mmol/L Chloride 105 (98-107) mmol/L Carbon Dioxide 25 (22-30) mmol/L Anion Gap 13.6 (5-15) MEQ/L BUN 8 (7-17) mg/dL Creatinine 0.71 (0.52-1.04) mg/dL Estimated GFR > 60.0 ML/MIN Glucose 94 (74-106) mg/dL Calcium 8.7 (8.4-10.2) mg/dL Total Bilirubin 0.60 (0.2-1.3) mg/dL AST 25 (14-36) U/L ALT 26 (0-35) U/L Alkaline Phosphatase 59 (38-126) U/L Troponin I (0.000-0.034) ng/mL Serum Total Protein 6.7 (6.3-8.2) g/dL Albumin 4.0 (3.5-5.0) g/dL Urine HCG, Qual NEGATIVE (Negative) Vaginal Dania Group DETECTED A (NEGATIVE) Dania species NOT DETECTED (NEGATIVE) T. vaginalis (PCR) NOT DETECTED (NEGATIVE) Bact Vaginosis (PCR) NEGATIVE (NEGATIVE) 12/05/22 12/05/22 Range/Units 10:17 19:56 WBC 6.6 (4.0-10.5) x10^3/uL RBC 4.68 (4.1-5.4) x10^6/uL Hgb 12.5 (12.0-16.0) g/dL Hct 39.3 (35-47) % MCV 84.0 (78-100) fL MCH 26.7 (26-32) pg MCHC 31.8 L (32-36) g/dL RDW 14.0 (11.5-14.0) % Plt Count 262 (150-450) x10^3/uL MPV 9.8 (7.5-11.0) fL Gran % 77.7 H (36.0-66.0) % Immature Gran % (Auto) 0.3 (0.00-0.4) % Nucleat RBC Rel Count 0.0 (0.00-0.1) % Eos # (Auto) 0.05 (0-0.5) x10^3/uL Immature Gran # (Auto) 0.02 (0.00-0.03) x10^3u/L Absolute Lymphs (auto) 1.14 (1.0-4.6) x10^3/uL Absolute Monos (auto) 0.21 (0.0-1.3) x10^3/uL Absolute Nucleated RBC 0.00 (0.00-0.01) x10^3u/L Lymphocytes % 17.4 L (24.0-44.0) % Monocytes % 3.2 (0.0-12.0) % Eosinophils % 0.8 (0.00-5.0) % Basophils % 0.6 (0.0-0.4) % Absolute Granulocytes 5.10 (1.4-6.9) x10^3/uL Basophils # 0.04 (0-0.4) x10^3/uL Sodium (137-145) mmol/L Potassium (3.5-5.1) mmol/L Chloride (98-107) mmol/L Carbon Dioxide (22-30) mmol/L Anion Gap (5-15) MEQ/L BUN (7-17) mg/dL Creatinine (0.52-1.04) mg/dL Estimated GFR ML/MIN Glucose (74-106) mg/dL Calcium (8.4-10.2) mg/dL Total Bilirubin (0.2-1.3) mg/dL AST (14-36) U/L ALT (0-35) U/L Alkaline Phosphatase (38-126) U/L Troponin I < 0.012 (0.000-0.034) ng/mL Serum Total Protein (6.3-8.2) g/dL Albumin (3.5-5.0) g/dL Urine HCG, Qual (Negative) Vaginal Dania Group (NEGATIVE) Dania species (NEGATIVE) T. vaginalis (PCR) (NEGATIVE) Bact Vaginosis (PCR) (NEGATIVE) - Radiology Impressions Radiology Exams & Impressions: Radiology Procedures Category Date Time Status HEAD WITHOUT CONTRAST [CT] Stat Exams 12/05/22 10:10 Completed MRI BRAIN W & W/O CONTRAST [MRI] Routine Exams 12/06/22 13:00 Ordered - Other Procedures and Tests Respiratory Therapy 12/05/22 15:16 Respiratory Therapy Assessment DAILY 12/05/22 17:07 EEG >60 Minutes (Extended) ONCE Assessment/Plan (1) Witnessed seizure-like activity Current Visit: Yes Status: Acute Assessment & Plan: Chief Complaint Diagnosis postcortal bleeding Allergies Allergy/AdvReac Type Severity Reaction Status Date / Time glycopyrrolate [From Celia] AdvReac Severe Verified 12/05/22 11:39 scopolamine AdvReac Severe Verified 12/05/22 10:22 Vital Signs (Last 24 hours) Temp Pulse Resp BP Pulse Ox 12/05/22 19:35 98.4 F 120 H 18 122/66 96 12/05/22 19:30 126 H 18 96 12/05/22 16:00 97.8 F 117 H 17 113/68 98 12/05/22 15:18 82 16 98 12/05/22 11:54 97.5 F 89 17 119/66 98 12/05/22 11:05 97.5 F 89 17 119/66 98 12/05/22 07:57 97.3 F 98 H 18 115/91 98 12/05/22 07:46 97.3 F 98 H 18 115/91 98 Home Medications Medication Instructions Recorded Confirmed Last Taken Type Albuterol Sulfate [Albuterol 2 puffs IH Q6HPRN PRN 12/05/22 12/05/22 12/05/22 03:00 History Sulfate Hfa] Norgestrel-Ethinyl Estradiol 1 tab PO DAILY 12/05/22 12/05/22 12/03/22 History [Elinest] PANTOPRAZOLE 40 mg Tablet 40 mg PO QPM 12/05/22 12/05/22 12/04/22 History [Protonix 40MG Tablet] Current Medications Generic Name Dose Route Start Last Admin Trade Name Freq PRN Reason Stop Dose Admin Albuterol Sulfate 2 puff 12/05/22 12:39 Albuterol Common Canister Inhaler IH 01/04/23 12:38 Q6HPRN PRN SHORTNESS OF BREATH/WHEEZING Bupropion HCl 300 mg 12/05/22 13:00 12/05/22 13:28 Bupropion Hcl 150 Mg Tablet Sr PO 01/04/23 12:59 300 mg DAILY DL Administration Ferrous Sulfate 325 mg 12/05/22 13:00 12/05/22 13:28 Ferrous Sulfate 325 Mg Tablet PO 01/04/23 12:59 325 mg DAILY DL Administration Sodium Chloride 1,000 mls @ 100 mls/hr 12/05/22 11:00 Sodium Chloride 0.9% 1000 Ml IV 01/04/23 10:59 .Q10H DL Sodium Chloride 1,000 mls @ 999 mls/hr 12/05/22 19:43 12/05/22 21:10 Sodium Chloride 0.9% 1000 Ml IV 12/05/22 20:43 999 mls/hr .Q1H1M STA Administration Ibuprofen 600 mg 12/05/22 16:48 12/05/22 17:37 Ibuprofen 600 Mg Tablet PO 01/04/23 16:47 600 mg Q6HPRN PRN Administration MODERATE PAIN Lorazepam 2 mg 12/05/22 10:54 Lorazepam 2 Mg/1 Ml 2 Mg Vial IV 01/04/23 10:53 PRN PRN SEIZURE Lorazepam 1 mg 12/05/22 20:00 Lorazepam 2 Mg/1 Ml 2 Mg Vial IV 12/05/22 20:01 1XONLY ONE Lorazepam 2 mg 12/06/22 09:00 Lorazepam 2 Mg/1 Ml 2 Mg Vial IV 12/06/22 09:01 ONCE ONE Miscellaneous Information 1 each 12/05/22 13:00 Medication Intervention 1 Each Each 01/04/23 12:59 .RN TO CHECK DL Pantoprazole Sodium 40 mg 12/05/22 22:00 Protonix (Pantoprazole) 40 Mg Tablet PO 01/04/23 21:59 QPM DL Discontinued Medications Generic Name Dose Route Start Last Admin Trade Name Freq PRN Reason Stop Dose Admin Dexamethasone Sodium Phosphate Confirm 12/05/22 08:52 Dexamethasone Sod Phosphate 4 Mg/Ml Ml Administered 12/05/22 08:53 Dose 8 mg .ROUTE .STK-MED ONE Fentanyl Citrate Confirm 12/05/22 08:52 Fentanyl Citrate 100 Mcg/2 Ml* Vial Administered 12/05/22 08:53 Dose 100 mcg .ROUTE .STK-MED ONE Glycopyrrolate Confirm 12/05/22 08:47 Glycopyrrolate 0.2 Mg/1ml Sdv Administered 12/05/22 08:48 Dose 0.2 mg .ROUTE .STK-MED ONE Cefazolin Sodium/Dextrose 2 gm in 50 mls @ 100 mls/hr 12/05/22 07:30 12/05/22 07:56 Cefazolin 2 Gm-D5w Bag IV 12/05/22 07:59 100 mls/hr ONCALLTOOR DL Administration Lactated Ringer's 1,000 mls @ 50 mls/hr 12/05/22 07:30 12/05/22 07:56 Lactated Ringers IV 01/04/23 07:29 50 mls/hr .Q20H DL Administration Cefazolin Sodium/Dextrose Confirm 12/05/22 07:33 Cefazolin 2 Gm-D5w Bag Administered 12/05/22 07:34 Dose 2 gm in 50 mls @ ud IV .STK-MED ONE Lactated Ringer's Confirm 12/05/22 07:33 Lactated Ringers Administered 12/05/22 07:34 Dose 1,000 mls @ ud IV .STK-MED ONE Lactated Ringer's Confirm 12/05/22 10:01 Lactated Ringers Administered 12/05/22 10:02 Dose 1,000 mls @ ud IV .STK-MED ONE Ketorolac Tromethamine Confirm 12/05/22 08:52 Ketorolac Tromethamine 30 Mg/Ml Inj Administered 12/05/22 08:53 Dose 30 mg .ROUTE .STK-MED ONE Lidocaine HCl Confirm 12/05/22 08:53 Lidocaine - Mpf 2% 5 Ml Vial Administered 12/05/22 08:54 Dose 5 ml .ROUTE .STK-MED ONE Midazolam HCl Confirm 12/05/22 08:47 Midazolam Hcl 2 Mg/2 Ml Vial Administered 12/05/22 08:48 Dose 2 mg .ROUTE .STK-MED ONE Midazolam HCl Confirm 12/05/22 09:36 Midazolam Hcl 5 Mg/5 Ml Vial Administered 12/05/22 09:37 Dose 5 mg .ROUTE .STK-MED ONE Midazolam HCl Confirm 12/05/22 09:55 Midazolam Hcl 5 Mg/5 Ml Vial Administered 12/05/22 09:56 Dose 5 mg .ROUTE .STK-MED ONE Ondansetron HCl Confirm 12/05/22 08:52 Ondansetron Hcl 4 Mg/2 Ml Vial Administered 12/05/22 08:53 Dose 4 mg .ROUTE .STK-MED ONE Propofol Confirm 12/05/22 08:51 Propofol 10 Mg/Ml 20ml Vial Administered 12/05/22 08:52 Dose 200 mg IV .STK-MED ONE Scopolamine HBr 1.5 mg 12/05/22 08:04 12/05/22 08:09 Scopolamine 1.5 Mg Patch TOP 01/04/23 08:03 1.5 mg 1HRPRIOR PRN Administration NAUSEA/VOMITING Scopolamine HBr Confirm 12/05/22 08:04 Scopolamine 1.5 Mg Patch Administered 12/05/22 08:05 Dose 1.5 mg .ROUTE .STK-MED ONE Succinylcholine Chloride Confirm 12/05/22 08:52 Succinylcholine Chloride 200mg/10 Ml Vial Administered 12/05/22 08:53 Dose 100 mg .ROUTE .STK-MED ONE Intake & Output (Last 24 hours) 12/03/22 12/04/22 12/05/22 12/06/22 11:59 11:59 11:59 11:59 Intake Total 740 Balance 740 Weight 77.6 kg Laboratory Results (Last 24 hours) 12/05/22 12/05/22 12/05/22 19:56 10:17 10:17 WBC 6.6 RBC 4.68 Hgb 12.5 Hct 39.3 MCV 84.0 MCH 26.7 MCHC 31.8 L RDW 14.0 Plt Count 262 MPV 9.8 Gran % 77.7 H Immature Gran % (Auto) 0.3 Nucleat RBC Rel Count 0.0 Eos # (Auto) 0.05 Immature Gran # (Auto) 0.02 Absolute Lymphs (auto) 1.14 Absolute Monos (auto) 0.21 Absolute Nucleated RBC 0.00 Lymphocytes % 17.4 L Monocytes % 3.2 Eosinophils % 0.8 Basophils % 0.6 Absolute Granulocytes 5.10 Basophils # 0.04 Sodium 139 Potassium 4.4 Chloride 105 Carbon Dioxide 25 Anion Gap 13.6 BUN 8 Creatinine 0.71 Estimated GFR > 60.0 Glucose 94 Calcium 8.7 Total Bilirubin 0.60 AST 25 ALT 26 Alkaline Phosphatase 59 Troponin I < 0.012 Serum Total Protein 6.7 Albumin 4.0 Urine HCG, Qual Vaginal Dania Group Dania species T. vaginalis (PCR) Bact Vaginosis (PCR) 12/05/22 12/05/22 09:18 07:31 WBC RBC Hgb Hct MCV MCH MCHC RDW Plt Count MPV Gran % Immature Gran % (Auto) Nucleat RBC Rel Count Eos # (Auto) Immature Gran # (Auto) Absolute Lymphs (auto) Absolute Monos (auto) Absolute Nucleated RBC Lymphocytes % Monocytes % Eosinophils % Basophils % Absolute Granulocytes Basophils # Sodium Potassium Chloride Carbon Dioxide Anion Gap BUN Creatinine Estimated GFR Glucose Calcium Total Bilirubin AST ALT Alkaline Phosphatase Troponin I Serum Total Protein Albumin Urine HCG, Qual NEGATIVE Vaginal Dania Group DETECTED A Dania species NOT DETECTED T. vaginalis (PCR) NOT DETECTED Bact Vaginosis (PCR) NEGATIVE Orders (Last 24 hours) Category Date Time Status Infection Control Consult ROUTINE Cons 12/05/22 11:54 Active Infection Control Consult ROUTINE Cons 12/05/22 12:38 Active Packing Checker/Discharge Plan ROUTINE Cons 12/05/22 12:38 Active House Regular Diet Diet 12/05/22 Lunch Active HEAD WITHOUT CONTRAST [CT] Stat Exams 12/05/22 10:10 Completed MRI BRAIN W & W/O CONTRAST [MRI] Routine Exams 12/06/22 13:00 Ordered CBC W DIFF Stat Lab 12/05/22 10:17 Completed CMP Stat Lab 12/05/22 10:17 Completed HCG,QUALITATIVE URINE Stat Lab 12/05/22 07:31 Completed SURGICAL PATHOLOGY Routine Lab 12/05/22 09:18 Received TROPONIN Stat Lab 12/05/22 19:56 Completed Vaginal Panel Routine Lab 12/05/22 09:18 Completed Albuterol Common Canister [Ventolin Common Canister* Med 12/05/22 12:39 Active ] 2 puff IH Q6HPRN PRN Bupropion HCl 150 mg Sr [Wellbutrin SR 150 MG] Med 12/05/22 13:00 Active 300 mg PO DAILY Cefazolin 2 gm /Dextrose [Cefazolin 2 gm-D5w Bag] Med 12/05/22 07:30 Discontinued 2 gm in 50 ml IV ONCALLTOOR Cefazolin 2 gm /Dextrose [Cefazolin 2 gm-D5w Bag] Med 12/05/22 07:33 Discontinued 2 gm in 50 ml IV UD Dexamethasone 4 mg [Decadron 4 MG INJ] Med 12/05/22 08:52 Discontinued 8 mg .ROUTE .STK-MED ONE Fentanyl Citrate 100 Mcg/2 ml* [Sublimaze 100 Mcg/2 ml* Med 12/05/22 08:52 Discontinued ] 100 mcg .ROUTE .STK-MED ONE Ferrous Sulfate 325 mg [Feosol 325 mg] Med 12/05/22 13:00 Active 325 mg PO DAILY Glycopyrrolate [Robinul] Med 12/05/22 08:47 Discontinued 0.2 mg .ROUTE .STK-MED ONE Ibuprofen 600 mg [Motrin 600 mg] Med 12/05/22 16:48 Active 600 mg PO Q6HPRN PRN KETOROLAC trometh 30 mg Inj [TORAdol 30 mg Injection Med 12/05/22 08:52 Discontinued ] 30 mg .ROUTE .STK-MED ONE Lidocaine HCl 2% Mpf 5 ml [Xylocaine-Mpf 2% 5 Ml Med 12/05/22 08:53 Discontinued Vial] 5 ml .ROUTE .STK-MED ONE Lorazepam 2 mg/1 ml [Ativan 2 MG/1 ML VIAL] Med 12/05/22 20:00 Once 1 mg IV 1XONLY ONE Lorazepam 2 mg/1 ml [Ativan 2 MG/1 ML VIAL] Med 12/06/22 09:00 Once 2 mg IV ONCE ONE Lorazepam 2 mg/1 ml [Ativan 2 MG/1 ML VIAL] Med 12/05/22 10:54 Active 2 mg IV PRN PRN Medication Intervention Med 12/05/22 13:00 Active 1 each MC .RN TO CHECK Midazolam HCl 2 mg/2 ml [Versed 2 MG/2 ML Injection* Med 12/05/22 08:47 Discontinued ] 2 mg .ROUTE .STK-MED ONE Midazolam HCl 5 mg/5 ml [Versed 5 mg/5 ml] Med 12/05/22 09:36 Discontinued 5 mg .ROUTE .STK-MED ONE Midazolam HCl 5 mg/5 ml [Versed 5 mg/5 ml] Med 12/05/22 09:55 Discontinued 5 mg .ROUTE .STK-MED ONE NaCl 0.9% 1000 ml [Sodium Chloride 0.9% 1000 ML] 1,000 Med 12/05/22 11:00 Active ml IV 100 mls/hr NaCl 0.9% 1000 ml [Sodium Chloride 0.9% 1000 ML] 1,000 Med 12/05/22 19:43 Ordered ml IV 999 mls/hr Ondansetron HCl 4 mg/2 ml [Zofran 4 MG/2 ML VIAL] Med 12/05/22 08:52 Discontinued 4 mg .ROUTE .STK-MED ONE PANTOPRAZOLE 40 mg Tablet [Protonix 40MG Tablet] Med 12/05/22 22:00 Active 40 mg PO QPM Propofol 200 mg/20 ml [Diprivan 200 mg/20 ml] Med 12/05/22 08:51 Discontinued 200 mg IV .STK-MED ONE Ringers Solution,Lactated [Lactated Ringers] 1,000 ml Med 12/05/22 07:30 Discontinued IV 50 mls/hr Ringers Solution,Lactated [Lactated Ringers] 1,000 ml Med 12/05/22 07:33 Discontinued IV UD Ringers Solution,Lactated [Lactated Ringers] 1,000 ml Med 12/05/22 10:01 Discontinued IV UD Scopolamine 1.5 mg Patch [Transderm Scop 1.5MG Patch Med 12/05/22 08:04 Discontinued ] 1.5 mg .ROUTE .STK-MED ONE Scopolamine 1.5 mg Patch [Transderm Scop 1.5MG Patch Med 12/05/22 08:04 Discontinued ] 1.5 mg TOP 1HRPRIOR PRN Succinylcholine Chloride 200Mg [Quelicin Fliptop 200 MG Med 12/05/22 08:52 Discontinued /10 ML] 100 mg .ROUTE .STK-MED ONE EEG >60 Minutes (Extended) ONCE RT 12/05/22 17:07 Active EKG ROUTINE RT 12/05/22 18:31 Completed Pulse Oximetry .spot check RT 12/05/22 15:16 Active RT Screen per Nursing Assess ONCE RT 12/05/22 12:38 Completed Respiratory Therapy Assessment DAILY RT 12/05/22 15:16 Active Code(s): R56.9 - UNSPECIFIED CONVULSIONS
[2022-12-05] MEDS ORDERED: Protonix 40MG Tablet PO SCH (22:00)
[2022-12-05] MEDS ORDERED: Zofran 4 MG/2 ML VIAL IV ONE (22:00)
[2022-12-05] MEDS: Sodium Chloride 0.9% 1000 ML 1,000 ML IV SCH ×2 (22:40→22:42)
[2022-12-06] MEDS: MOTRIN 600 MG PO PRN (04:07)
[2022-12-06] MEDS: Sodium Chloride 0.9% 1000 ML 1,000 ML IV SCH (06:15)
[2022-12-06] MEDS ORDERED: Zofran 4 MG/2 ML VIAL IV ONE (09:00)
[2022-12-06] MEDS ORDERED: Ativan 2 MG/1 ML VIAL IV ONE (09:00)
[2022-12-06] MEDS: Wellbutrin SR 150 MG PO SCH (09:38)
[2022-12-06] MEDS: FEOSOL 325 MG PO SCH (09:38)
[2022-12-06] MEDS ORDERED: NORGESTREL ETHINYL ESTRADIOL PO SCH (10:00)
--- NOTE | 2022-12-06 10:36 | OP ---
SURGERY DATE/TIME: 12/05/2022 0902 PREOPERATIVE DIAGNOSIS: Post-coital bleeding. POSTOPERATIVE DIAGNOSIS: Post-coital bleeding. PROCEDURE: Hysteroscopy D&C. SURGEON: John Conway D.O. SEAFOOD PACKER: Karey Phillip surgical coder. ANESTHESIA: General. ESTIMATED BLOOD LOSS: Minimal. COMPLICATIONS: None. INDICATIONS: The risks, benefits, indications and alternatives of the procedure were reviewed with the patient prior to the procedure. The patient understood the risk of infection, bleeding, bowel injury, bladder injury, uterine perforation and pelvic infection associated with the surgery and desires to have this surgery as a possible means to alleviate her current medical condition. DESCRIPTION OF PROCEDURE AND FINDINGS: At this point the patient is taken to the operating room, given general sedation, placed in dorsal lithotomy position, prepped and draped in the usual sterile fashion. A weighted speculum is then placed in the patient's vagina and the anterior lip of the cervix was grasped with a single tooth tenaculum. Endocervical dilators were advanced through the endocervical canal as a means to dilate the cervix. From this point, a 5 mm hysteroscope was then placed through the endocervical region where visualization of the uterine cavity appeared to be within normal limits with no gross abnormalities visualized in the endometrial lining. From this point, the hysteroscope was removed and curette was then placed into the fundus of the uterus and curettage was performed in all quadrants of the uterus retrieving a mild to moderate amount of tissue. From this point, hemostasis was obtained. From this point, all instruments were then removed from the patient's vaginal region. The patient was then taken out of dorsal lithotomy position, taken out of anesthesia and was then taken to the recovery room in stable condition. All instruments and laps were accounted for x2.
[2022-12-06 11:23] VITALS: BP 115/68; PULSE 81; O2SAT 99
--- NOTE | 2022-12-06 12:50 | PCM.NOTE ---
Date and Time: 12/06/22 1250 Subjective Assessment: doing better, no seizure activity - Review of Systems Constitutional: No Fever, No Chills Eyes: No Symptoms Ears, Nose, & Throat: No Symptoms Respiratory: No Cough, No Short Of Breath Cardiac: No Chest Pain, No Edema, No Syncope Abdominal/Gastrointestinal: No Abdominal Pain, No Nausea, No Vomiting, No Diarrhea Genitourinary Symptoms: No Dysuria Musculoskeletal: No Back Pain, No Neck Pain Skin: No Rash Neurological: No Dizziness, No Focal Weakness, No Sensory Changes Psychological: No Symptoms Endocrine: No Symptoms Hematologic/Lymphatic: No Symptoms Immunological/Allergic: No Symptoms Objective Exam General Appearance: no apparent distress, alert Neurologic Exam: alert, oriented x 3, cooperative, normal mood/affect, nml cerebellar function, sensation nml, No motor deficits Skin Exam: normal color, warm, dry Eye Exam: PERRL, EOMI, eyes nml inspection Ears, Nose, Throat Exam: normal ENT inspection, pharynx normal, moist mucous membranes Neck Exam: normal inspection, non-tender, supple, full range of motion Respiratory Exam: normal breath sounds, lungs clear, No respiratory distress Cardiovascular Exam: regular rate/rhythm, normal heart sounds Gastrointestinal/Abdomen Exam: soft, No tenderness, No mass Extremity Exam: normal inspection, normal range of motion Back Exam: normal inspection, normal range of motion, No CVA tenderness, No vertebral tenderness Pelvic Exam: deferred Rectal Exam: deferred OBJECTIVE DATA Vital Signs: Vital Signs - 24 hr Temp Pulse Resp BP Pulse Ox 12/06/22 11:22 97.5 F 81 16 115/68 99 12/06/22 07:52 99 H 16 98 12/06/22 07:29 97.3 F 77 17 98/57 99 12/06/22 04:00 97.2 F 101 H 16 108/60 99 12/05/22 23:19 98.0 F 89 17 107/64 96 12/05/22 23:05 92 H 16 12/05/22 19:35 98.4 F 120 H 18 122/66 96 12/05/22 19:30 126 H 18 96 12/05/22 16:00 97.8 F 117 H 17 113/68 98 12/05/22 15:18 82 16 98 Pain Assessment - Last Documented Pain Intensity 5 Pain Scale Used 0-10 Pain Scale Intake and Output: Intake & Output 12/04/22 12/05/22 12/06/22 12/07/22 11:59 11:59 11:59 11:59 Intake Total 4334 Balance 4334 Weight 77.6 kg Lab Results: Lab Results-Last 24 Hours 12/05/22 Range/Units 19:56 Troponin I < 0.012 (0.000-0.034) ng/mL Radiology Exams: Radiology Procedures Category Date Time Status HEAD WITHOUT CONTRAST [CT] Stat Exams 12/05/22 10:10 Completed MRI BRAIN W & W/O CONTRAST [MRI] Routine Exams 12/06/22 13:00 Ordered Assessment/Plan (1) Witnessed seizure-like activity Current Visit: Yes Status: Resolved Code(s): R56.9 - UNSPECIFIED CONVULSIONS
--- NOTE | 2022-12-06 14:39 | XRAY ---
Indication: New's onset seizure. Status post surgery. Sagittal, coronal, and axial MRI brain performed using pre and post T1, T2, FLAIR, diffusion, and ADC sequences. 15 cc Dotarem contrast used. Comparison: None Ventriculosulcal pattern appears symmetric. No acute intracranial hemorrhage, abnormal extra-axial fluid collection, or mass effect. Diffusion images are negative for restricted signal. No evidence for mesial temporal sclerosis. Following gadolinium, there is no abnormal enhancing intra or extra-axial mass. Fourth ventricle is midline without hydrocephalus. 7/8 cranial nerve complex bilaterally symmetric. Normal appearing craniocervical junction and sella turcica. Complete opacification right maxillary sinus and mild mucosal thickening right ethmoid sinus. Impression: Paranasal sinus disease. Remaining MRI brain with contrast exam is negative.
== END 2022-12-06 15:25 | disposition home or self-care (01) ==
LOC: SDC 07:04 → MED SURG 10:45
PROVIDERS: ADMIT General Practice; ATTEND Obstetrics & Gynecology
DX: R56.9 Unspecified convulsions (principal); N93.0 Postcoital and contact bleeding; Z79.899 Other long term (current) drug therapy; Z20.828 Contact with and (suspected) exposure to other viral communicable diseases
CPT/HCPCS: 36415; 70450; 70553; 80053; 81025; 84484; 85025; 87481; 87661; 87801; 93005; 93268; 94640; 94760; 95813; J0330; J0690; J1100; J1885; J2060; J2250; J2405; J2704; J3010; Q3014; A9270-GY; G0378